=== PATIENT | male | born 1955 | race Caucasian/White ===

== ENCOUNTER 2023-07-07 08:13 | Emergency (ER) | payer OTHER ==
--- OUTSIDE RECORDS SUMMARY | 2023-07-07 08:17 | XMS REPORT | Clinical Summary ---
:[address] [facility] MD Horta [facility] Center Address [address] [place] [address] Care Team Providers Name Role Phone Parker Giron MD Unavailable [phone] Maris Alaniz MD Primary Care Provider Juan Robbins MD Unavailable Yoel Frausto MD Unavailable [phone] Oksana Méndez MD Unavailable Allergies Active Allergy Reactions Criticality Noted Date Comments Bee Venom Protein (Honey Swelling Medium 05/21/2018 Bee) Poison Janette Extract Dermatitis, Itching, Rash, Low 03/02/20 19 Swelling Wasp Venom 03/02/2019 Medications Medication Sig Dispensed Refills Start Date End Date Status aspirin 81 mg Chew 1 0 Active chewable tablet tablet (81 mg) daily. cholecalciferol, Take 1.5 0 Act rossy vitamin D3, 1,000 tablets units tablet (1,500 Units) by mouth daily. escitalopram Take 1.5 0 Active (LEXAPRO) 20 mg tablets (30 tablet mg) by mouth daily. pravastatin Take 2 0 Active (PRAVACHOL) 40 mg tablets (80 tablet mg) by mouth daily. clonazePAM 0 11/26/2018 Active (KlonoPIN) 0.5 mg tablet finasteride TAKE 1 90 tablet 3 10/04/2022 Active (PROSCAR) 5 mg TABLET BY tabletIndications: MOUTH EVERY Enlarged prostate DAY with LUTS, History of urinary tract infection co-enzyme Q-10 30 Take 200 mg 0 Active mg capsule by mouth daily. tamsulosin TAKE 1 90 capsule 3 06/19/2023 Active (FLOMAX) 0.4 mg 24 CAPSULE BY hr MOUTH EVERY capsuleIndications DAY : Enlarged prostate with LUTS, History of urinary tract infection ALPRAZolam (XANAX) Take 0.25 mg 0 05/21/20 2 Discontinued (Not 0.25 mg tablet by mouth as 3 Magdiel licable) needed. finasteride TAKE 1 90 tablet 3 10/19/2020 Discont inued (PROSCAR) 5 mg TABLET BY 3 (Reor preethi) tabletIndications: MOUTH EVERY Enlarged prostate DAY with LUTS, History of urinary tract infection tamsulosin TAKE 1 90 capsule 3 11/27/2021 Discont inued (FLOMAX) 0.4 mg 24 CAPSULE BY 3 (Reorder) hr MOUTH EVERY capsuleIndications DAY : Enlarged prostate with LUTS, History of urinary tract infection Active Problems Problem Noted Date Diagnosed Date Hyperlipidemia 08/05/1994 Overview: Pravastatin Prostate cancer Overview: Biopsy Mandatory CMS ICD-10 2020 UPDATE Polyp of colon Overview: Removed 10 yrs ago Encounters Date Type Department Care Team Description 06/19/2023 Orders Only MD Bebeto Crawford, Enlarged prostate with LUTS; [facility] Sandra Richmond, History of urinary tract inf ection [address] [place] [address] 05/22/2023 Orders Only MD Bebeto Crawford Adenocarc inoma of Alisha Flores Basilio, prostate (Primary Dx) [address] [place] [address] 05/21/2023 Follow-Up MD Bebeto Stokes Logothmindy, Adenocarc inoma of 12:00 PM CDT [facility] - Genitourinary Christophvivien, prostat e Oncology [address] [place] [address] 05/21/2023 Orders Only MD Bebeto Crawford, Enlarged prostate with LUTS (Primary Dx); Alisha Richmond, Adenocarcinoma of prostate [address] [place] [address] 05/21/2023 Travel 05/20/2023 Ancillary Procedure MD Bebeto Crawford, Ad enocarcinoma of 12:45 PM CDT Alisha Richmond, prostate [address] [address] 05/20/2023 Travel 10/04/2022 Orders Only MD Bebeto Crawford, Enlarged prostate with LUTS; Alisha Richmond, History of urinary tract inf ection [address] [place] [address] 09/26/2022 Telemedicine MD Bebeto Crawford, Adenocarc inoma of 3:00 PM [employer] Alisha Richmond, prostate [address] [place] [address] 09/26/2022 Travel after 07/07/2022 Surgical History Surgery Date Site/Laterality Comments COLONOSCOPY Regular schedule LIPOMA RESECTION Left L hand WA BX PROSTATE STRTCTC 11/28/2020 Perineum/N/A Procedure : TRANSPERINEAL SATURATION SAMPLING IMG GID NEED LE BIOPSY OF PROSTATE AND SATURATION SAMPL ING USING STEREOTACTIC TEM PLATE GUIDANCE; Surgeo n: Oksana Méndez MD; Locat ion: [facility]; Service: UROLOGY Medical History Medical History Date Comments Hyperlipidemia 1994 Pravastatin Hearing loss Deteriorating over y ears Polyp of colon Removed 10 yrs ago Benign prostatic hyperplasia 10+ years Arthritis 2000 Lower back, hands, Prostate cancer 2015 Biopsy Family History Medical History Relation Name Comments -Other cancer Father Ramiro Knowles Skin cancer -Genitourinary (Bladder, Kidney, Maternal Grandfather Sanchez Brown fman Prostate, Testicle) -Leukemia Maternal Uncle 1 Tom Fletcher Prostate cancer Maternal Uncle 2 Rosio -Thoracic or Lung Mother Sonia Knowles -Thyroid cancer Mother Sonia Knowles -Uterine cancer Mother Sonia Knowles -Other cancer Sister Ramon Skin cancer Relation Name Status Comments Father Ramiro Knowles Maternal Grandfather Sanchez Fletcher Maternal Uncle 1 Tom Fletcher Maternal Uncle 2 Rosio Alive Mother Sonia Knowles Sister Ramon Social History Tobacco Use Types Packs/Day Years Used Date Smoking Tobacco: Never Smokeless Tobacco: Never Alcohol Use Standard Drinks/Week Comments Yes 0 (1 standard drink = 0.6 oz pure alcoho l) Sex and Gender Information Value Date Recorded Sex Assigned at Male 11/24/2020 9:58 AM CDT Gender Identity Male 11/24/2020 9:58 AM C DT Sexual Orientation Straight 11/24/2020 9:58 AM C DT Job Start Date Occupation Industry Not on file Not on file Not on file Obstetrics History Last Filed Vital Signs Vital Sign Reading Time Taken Comments Blood Pressure 109/69 05/21/2023 11:10 AM CDT Pulse 60 05/21/2023 11:10 AM CDT Temperature 36.4 C (97.5 F) 05/21/2023 11:10 AM CDT Respiratory Rate 16 05/21/2023 11:10 AM CDT Oxygen Saturation 97% 05/21/2023 11:10 AM CDT Inhaled Oxygen Concentration - - Weight 91.9 kg (202 lb 9.6 oz) 05/21/2023 11:10 AM CDT Height 184 cm (6' 0.44") 05/20/2023 12:39 PM CDT Body Mass Index 27.14 05/20/2023 12:39 PM CDT Plan of Treatment Date Type Department Care Team Description 08/27/2023 Consult Genitourinary Cancer Molina Sommer 1:00 PM [employer] Center IV, [facility] [address], [address] [place] [address] or [facility] [place] [address] [place] [address] [phone] 11/20/2023 Lab Sandra Pardo, 7:00 AM CDT City - Diagnostic [facility] [address] [place] [address] [address] [phone] [place] [address] (Work) [phone] 11/20/2023 Telemedicine Sandra Pardo, 10:00 AM CDT City [facility] [address] [place] [address] [address] [place] [address] [phone] 05/26/2024 Lab Sandra Pardo, 6:00 AM CDT [facility] - Diagnostic [facility] [address] [place] [address] [address] [phone] [place] [address] (Work) [phone] 05/26/2024 Ancillary Procedure Sandra Pardo , 6:15 AM CDT [facility] [address] [place] [address] 2nd [place] [address] [place] [address] 05/26/2024 Follow-Up MD Bebeto Frausto, 10:00 AM CDT [facility] - Genitourinary MD [facility] [address] [place] [address] [place] [address] [phone] Health Maintenance Due Date Last Done Comments COVID-19 Vaccination ( season) 04/05/20232020, 08/24/2020 Procedures Procedure Name Priority Date/Time Associated Diagnosis Comme nts MRI PELVIS W WO Routine 05/20/2023 2:42 Adenocarcinoma of Resu lts for this CONTRAST PROSTATE PM CDT prostate procedure are in the results section. DIFFERENTIAL Routine 05/20/2023 11:56 Adenocarcinoma of Result s for this AM CDT prostate procedure are i n the results section. .CBC Routine 05/20/2023 11:56 Adenocarcinoma of Result s for this AM CDT prostate procedure are i n the results section. FRACTIONATED BILIRUBIN Routine 05/20/2023 11:56 Adenocarcinoma of Results for this AM CDT prostate procedure are i n the results section. TOTAL PROTEIN Routine 05/20/2023 11:56 Adenocarcinoma of Resul ts for this AM CDT prostate procedure are i n the results section. ASPARTATE Routine 05/20/2023 11:56 Adenocarcinoma of Result s for this AMINOTRANSFERASE AM CDT prostate procedure a re in the results section. ALANINE Routine 05/20/2023 11:56 Adenocarcinoma of Result s for this AMINOTRANSFERASE AM CDT prostate procedure a re in the results section. ALKALINE PHOSPHATASE Routine 05/20/2023 11:56 Adenocarcinoma o f Results for this AM CDT prostate procedure are i n the results section. ALBUMIN LEVEL Routine 05/20/2023 11:56 Adenocarcinoma of Resul ts for this AM CDT prostate procedure are i n the results section. CALCIUM LEVEL Routine 05/20/2023 11:56 Adenocarcinoma of Resul ts for this AM CDT prostate procedure are i n the results section. .GLOMERULAR FILTRATION Routine 05/20/2023 11:56 Adenocarcinoma of Results for this RATE AM CDT prostate procedure are i n the results section. SERUM CREATININE Routine 05/20/2023 11:56 Adenocarcinoma of Re sults for this AM CDT prostate procedure are i n the results section. ELECTROLYTE PANEL Routine 05/20/2023 11:56 Adenocarcinoma of R esults for this AM CDT prostate procedure are i n the results section. BLOOD UREA NITROGEN Routine 05/20/2023 11:56 Adenocarcinoma of Results for this AM CDT prostate procedure are i n the results section. GLUCOSE LEVEL Routine 05/20/2023 11:56 Adenocarcinoma of Resul ts for this AM CDT prostate procedure are i n the results section. TESTOSTERONE LEVEL Routine 05/20/2023 11:56 Adenocarcinoma of Results for this AM CDT prostate procedure are i n the results section. PROSTATE SPECIFIC Routine 05/20/2023 11:56 Adenocarcinoma of R esults for this ANTIGEN AM CDT prostate procedure are i n the results section. COMPLETE BLOOD COUNT W/ Routine 05/20/2023 11:56 Adenocarcinom a of DIFFERENTIAL AM CDT prostate COMPREHENSIVE METABOLIC Routine 05/20/2023 11:56 Adenocarcinom a of PANEL AM CDT prostate TESTOSTERONE LEVEL Routine 09/26/2022 10:03 Adenocarcinoma of Results for this AM [employer] prostate procedure are i n the results section. PROSTATE SPECIFIC Routine 09/26/2022 10:03 Adenocarcinoma of R esults for this ANTIGEN AM [employer] prostate procedure are i n the results section. after 07/07/2022 Results MRI Pelvis with and without Contrast - Prostate (05/20/2023 2:42 PM CDT) Anatomical Region Laterality Modality Pelvis Magnetic Resonance Specimen (Source) Anatomical Collection Method Collection Time Re ceived Time Location / / Volume Laterality 05/21/2023 9:11 AM CDT Impressions 05/21/2023 9:18 AM CDT Severe BPH without definite evidence of prostate carcinoma visualized. Estimated prostate volume of 83.6 with e stimated PSA density of 0.02 ng/mL/cc. ACTIONABLE ITEMS/RECOMMENDATIONS: None. Narrative 05/21/2023 9:18 AM CDT Full Result: Examination: MRI PELVIS W WO CONTRAST WA [place] on 05/20/2023 2:42 PM Clinical History: Adenocarcinoma of pros rosales. PSA: 1.9 ng/mL. Indication: prostate cancer Joel score: 6. Comparison: 03/09/2022 Prior therapy: none Technique: Prostate MRI acquired at 3 T without an endorectal coil. Three-plane localizer, axial T1W and axial DWI with ADC reconstruction of the pelvis were performed. Three plane T2W, axial T1W, and axial DWI with ADC reconstruction of th e prostate were performed. Axial dynamic contrast-enhanced images were acquired of the prostate. Image Quality: Acceptable Findings: Prostate measurement (3-plane): 5.8 x 4. 4 x 6.3 cm (transverse by AP by craniocaudal); estimated prostate volume of 83.6 cc. Hemorrhage: None Benign prostatic hypertrophy: Severe. There are no foci of restricted diffusio n suspicious for prostate carcinoma. Lymphadenopathy: not found No clear involvement of the bladder neck , distal sphincter, or rectum. Bones: No suspect osseous lesions Other: unremarkable. Procedure Note Lauren Miller MD - 05/21/2023Formatti ng of this note might be different from the original. Full Result: Examination: MRI PELVIS W WO CONTRAST WA OSTATE on 05/20/2023 2:42 PM Clinical History: Adenocarcinoma of pros rosales. PSA: 1.9 ng/mL. Indication: prostate cancer Vici score: 6. Comparison: 03/09/2022 Prior therapy: none Technique: Prostate MRI acquired at 3 T without an endorectal coil. Three-plane localizer, axial T1W and axial DWI with ADC reconstruction of the pelvis were performed. Three plane T2W, axial T1W, and axial DWI with ADC reconstruction of the prostate were performed. Axial dynamic contrast- enhanced images were acquired of the prostate. Image Quality: Acceptable Findings: Prostate measurement (3-plane): 5.8 x 4. 4 x 6.3 cm (transverse by AP by craniocaudal); estimated prostate volume of 83.6 cc. Hemorrhage: None Benign prostatic hypertrophy: Severe. There are no foci of restricted diffusio n suspicious for prostate carcinoma. Lymphadenopathy: not found No clear involvement of the bladder neck , distal sphincter, or rectum. Bones: No suspect osseous lesions Other: unremarkable. IMPRESSION: Severe BPH without definite evidence of prostate carcinoma visualized. Estimated prostate volume of 83.6 with e stimated PSA density of 0.02 ng/mL/cc. ACTIONABLE ITEMS/RECOMMENDATIONS: None. Sandra Crawford APRN IMG MRI ORDERABLES .Serum Creatinine (05/20/2023 11:56 AM CDT) athologist Signature Creatinine 1.00 0.67 - 1.17 [place] mg/dL Comment: Testing performed at [facility], [address] [place] [address] Specimen Anatomical Collection Method Collection Time Receive d Time (Source) Location / / Volume Laterality Blood 05/20/2023 11:56 05/20/2023 AM CDT 11:56 AM CDT Sandra Crawford APRN LAB BLOOD ORDERABLES Performing Organization Address City/State/[place] [address], [facility] [address] .CBC (05/20/2023 11:56 AM CDT) athologist Signature WBC 5.0 4.1 - 10.5 [place] K/uL Comment: All components of the CBC perfo rmed at [facility], [address] [place] [address] RBC 4.91 4.30 - 6.04 M/uL [place] Comment: All components of the CBC perfo rmed at [facility], [address] [place] [address] Hgb 14.8 13.3 - 17.4 gm/dL [place] Comment: As part of CBC or as an individ ual orderable testing performed at [facility], [address] [place] [address] Hct 45.3 39.5 - 51.8 % [place] Comment: As part of CBC testing performe d at [facility], [address] [place] [address] MCV 92 82 - 99 fL [place] Comment: As part of CBC testing performe d at [facility], [address] [place] [address] MCH 30.1 26.6 - 33.2 pg [place] Comment: As part of CBC testing performe d at [facility], [address] [place] [address] MCHC 32.7 31.1 - 35.2 gm/dL [place] Comment: As part of CBC testing performe d at [facility], [address] [place] [address] RDW-SD 43.6 37.5 - 49.7 fL [place] Comment: As part of CBC testing performe d at [facility], [address] [place] [address] RDW-CV 12.7 11.6 - 15.5 % [place] Comment: As part of CBC testing performe d at [facility], [address] [place] [address] Platelet count 171 160 - 397 K/uL [facility] Y Comment: As part of CBC or an individual orderable testing performed at [facility], [address] [place] [address] MPV 9.2 9.1 - 12.6 fL [place] Comment: As part of CBC testing performe d at [facility], [address] [place] [address] Specimen Anatomical Collection Method Collection Time Receive d Time (Source) Location / / Volume Laterality Blood 05/20/2023 11:56 05/20/2023 AM CDT 11:56 AM CDT Sandra Crawford APRN LAB BLOOD ORDERABLES Performing Organization Address City/State/[place] [address], [facility] [address] Glomerular Filtration Rate (05/20/2023 11:56 AM CDT) athologist Signature eGFR 81 >=60 [place] mL/min/1.73 sq. m Comment: The eGFRcr is calculated with the 2020 KD-EPI creatinine equation using creatinine, patient's age, and sex for adults 18 years of age and older. Other factors, especially muscle mass, may affect accuracy and need to be considered. According to the Kidney Disease: Improvi ng Global Outcomes (KDIGO) CKD Work Group 2012 Clinical Practice Guideline, chronic kidney disease (CKD) is defined as the abnormalities of kidney structure or function, present for more than 3 months, with implications for health. CKD should be c lassified by cause, GFR category, and albuminuria category. KDIGO guidelines provide the following GFR categories Stage Description GFR mL/min/1.73 m2 G1* Normal or high >= 90 G2* Mildly decreased 60-89 G3a Mildly to moderately decreased 45-59 G3b Moderately to severely decreased 30- 44 G4 Severely decreased 15-29 G5 Kidney failure <15 *In the absence of evidence of kidney da mage, neither G1 nor G2 fulfill criteria for CKD. Testing performed at [facility], [address] [place] [address] Specimen Anatomical Collection Method Collection Time Receive d Time (Source) Location / / Volume Laterality Blood 05/20/2023 11:56 05/20/2023 AM CDT 11:56 AM CDT Sandra Crawford APRN LAB BLOOD ORDERABLES Performing Organization Address City/State/ZIP Code Phon e Number [facility] [place] [address], [place] [address] Fractionated Bilirubin (05/20/2023 11:56 AM CDT) athologist Signature Bili Total 1.1 <=1.2 mg/dL [place] Comment: Indocyanine Green (ICG) may cause falsel y elevated bilirubin results. Total and direct bilirubin must not be measured from samples containing indocyanine green. False elevation of total bilirubin can b e seen in patients with IgG concentrations above 28 g/L. Testing performed at [facility], [address] [place] [address] Bili Direct 0.2 <=0.3 mg/dL [place] Comment: Indocyanine Green (ICG) may cause falsel y elevated bilirubin results. Total and direct bilirubin must not be measured from samples containing indocyanine green. Testing performed at [facility], [address] [place] [address], [place] [address] Bili Indirect 0.9 0.0 - 0.9 mg/dL [facility] Comment: Testing performed at [facility], [address] [place] [address] Specimen Anatomical Collection Method Collection Time Receive d Time (Source) Location / / Volume Laterality Blood 05/20/2023 11:56 05/20/2023 AM CDT 11:56 AM CDT Sandra Crawford APRN LAB BLOOD ORDERABLES Performing Organization Address City/State/[place] [address], [place] [address] Differential (05/20/2023 11:56 AM CDT) athologist Signature Neutrophil % 49.4 43.2 - 72.7 [place] % Comment: All components of the Different ial performed at [facility], [address] [place] [address] Lymphocyte % 38.0 16.8 - 46.2 % [place] Comment: As part of the Differential nancy ting performed at [facility], [address] [place] [address] Monocyte % 8.2 5.1 - 12.5 % [place] Comment: As part of the Differential nancy ting performed at [facility], [address] [place] [address] Eosinophil % 3.6 0.4 - 6.3 % [place] Comment: As part of the Differential nancy ting performed at [facility], [address] [place] [address] Basophil % 0.6 0.2 - 1.4 % [place] Comment: As part of the Differential nancy ting performed at [facility], [address] [place] [address] IGRE % 0.2 0.1 - 1.5 % [place] Comment: IGRE % count includes Metamyelocytes, My elocytes, and Promyelocytes. As part of the Differential testing perf ormed at [facility], [address] [place] [address] Neutrophil Abs 2.46 1.95 - 7.25 K/uL [facility] Comment: As part of the Differential nancy ting performed at [facility], [address] [place] [address] Lymphocyte Abs 1.89 1.01 - 3.24 K/uL [facility] Comment: As part of the Differential nancy ting performed at [facility], [address] [place] [address] Monocyte Abs 0.41 0.24 - 0.85 K/uL [facility] Comment: As part of the Differential nancy ting performed at [facility], [address] [place] [address] Eosinophil Abs 0.18 0.02 - 0.50 K/uL [facility] Comment: As part of the Differential nancy ting performed at [facility], [address] [place] [address] Basophil Abs 0.03 0.02 - 0.09 K/uL [facility] Comment: As part of the Differential nancy ting performed at [facility], [address] [place] [address] IG Abs 0.01 0.01 - 0.12 K/uL [place] Comment: As part of the Differential nancy ting performed at [facility], [address] [place] [address] Specimen Anatomical Collection Method Collection Time Receive d Time (Source) Location / / Volume Laterality Blood 05/20/2023 11:56 05/20/2023 AM CDT 11:56 AM CDT Sandra Crawford APRN LAB BLOOD ORDERABLES Performing Organization Address City/State/ZIP Code Phon e Number [place] [phone] [place] [address], [facility] [address] BUN (05/20/2023 11:56 AM CDT) athologist Signature BUN 17 6 - 23 mg/dL [place] Comment: Testing performed at [facility], [address] [place] [address] Specimen Anatomical Collection Method Collection Time Receive d Time (Source) Location / / Volume Laterality Blood 05/20/2023 11:56 05/20/2023 AM CDT 11:56 AM CDT Sandra Crawford [facility] LAB BLOOD ORDERABLES Performing Organization Address City/State/[place] [address], [facility] [address] (ABNORMAL) ALT (05/20/2023 11:56 AM CDT) athologist Signature ALT 43 (H) <=41 U/L [place] Comment: Testing performed at [facility], [address] [place] [address] Specimen Anatomical Collection Method Collection Time Receive d Time (Source) Location / / Volume Laterality Blood 05/20/2023 11:56 05/20/2023 AM CDT 11:56 AM CDT Sandra Crawford [facility] LAB BLOOD ORDERABLES Performing Organization Address City/State/[place] [address], [facility] [address] Aspartate Aminotransferase (05/20/2023 11:56 AM CDT) athologist Signature AST 34 <=40 U/L [place] Comment: Testing performed at [facility], [address] [place] [address] Specimen Anatomical Collection Method Collection Time Receive d Time (Source) Location / / Volume Laterality Blood 05/20/2023 11:56 05/20/2023 AM CDT 11:56 AM CDT Sandra Crawford [facility] LAB BLOOD ORDERABLES Performing Organization Address City/State/[place] [address], [facility] [address] (ABNORMAL) Testosterone (05/20/2023 11:56 AM CDT)Only the most recent of2 resultswithin the time period is included. athologist [facility] Testoster Tot 820 (H) 193 - 740 [place] ng/dL Comment: Reference Ranges: Male: Age 20 - 49 249 - 836 Age >=50 1 93 - 740 Female: Age 20 - 49 8 - 48 Age >=50 3 - 41 Testing performed at [facility], [address] [place] [address] Specimen Anatomical Collection Method Collection Time Receive d Time (Source) Location / / Volume Laterality Blood 05/20/2023 11:56 05/20/2023 AM CDT 11:56 AM CDT Sandra Crawford APRN LAB BLOOD ORDERABLES Performing Organization Address City/State/[place] [address], [facility] [address] Total Protein (05/20/2023 11:56 AM CDT) [facility] Total Protein 6.6 6.4 - 8.3 [place] g/dL Comment: Testing performed at [facility], [address] [place] [address] Specimen Anatomical Collection Method Collection Time Receive d Time (Source) Location / / Volume Laterality Blood 05/20/2023 11:56 05/20/2023 AM CDT 11:56 AM CDT Sandra Crawford APRN LAB BLOOD ORDERABLES Performing Organization Address City/State/[place] [address], [facility] [address] Prostate Specific Antigen (PSA) Diagnostic (05/20/2023 11:56 AM CDT)Only the most recent of2 resultswithin the time period is included. [facility] PSA 1.9 0.0 - 4.0 [place] ng/mL Comment: Results greater than 4519 ng/mL may not be reliable due to matrix effect with extended dilution as it exceeds the casino cage cashier's recommended limit. Caution should be exercised when interpreting such lia ues and done in conjunction with luis galaviz. [facility], [address] [place] [address] PSA Indication Diagnostic [place] Specimen Anatomical Collection Method Collection Time Receive d Time (Source) Location / / Volume Laterality Blood 05/20/2023 11:56 05/20/2023 AM CDT 11:56 AM CDT Sandra Crawford APRN LAB BLOOD ORDERABLES Performing Organization Address City/[facility]/ZIP Code Phon e Number [place], [place] [id number] [place] [address], [facility] [id number] Alkaline Phosphatase (05/20/2023 11:56 AM CDT) athologist Signature Alk Phos 69 40 - 129 U/L [place] Comment: Testing performed at [facility], [address] [place] [id number] Specimen Anatomical Collection Method Collection Time Receive d Time (Source) Location / / Volume Laterality Blood 05/20/2023 11:56 05/20/2023 AM CDT 11:56 AM CDT Sandra Crawford APRN LAB BLOOD ORDERABLES Performing Organization Address City/[facility]/ZIP Code Phon e Number [place], [place] [id number] [place] [address], [facility] [id number] Glucose Level (05/20/2023 11:56 AM CDT) P athologist Signature Glucose Level 91 70 - 99 [place] mg/dL Comment: Effective 02/29/16, the glucose reference intervals have been updated based on [place] [employer] guidelines (Standards of Medical Care in Diabetes 2016. Diabetes Care 2016; 39: S13-S22). Fasting blood glucose: Normal: 70-99 mg/dL Impaired fasting glucose (increased risk for diabetes or pre-diabetes): 100- 125 mg/dL Diabetes mellitus: >/=126 mg/dL Random blood glucose: Normal: 70-199 mg/dL Note: Random glucose >100 mg/dL is assoc iated with increased risk for diabetes Testing performed at [facility], [address] [place] [address] Specimen Anatomical Collection Method Collection Time Receive d Time (Source) Location / / Volume Laterality Blood 05/20/2023 11:56 05/20/2023 AM CDT 11:56 AM CDT Sandra Crawford APRN LAB BLOOD ORDERABLES Performing Organization Address City/State/ZIP Code Phon e Number [place], [place] [phone] [place] [address], [facility] [id number] Calcium Level (05/20/2023 11:56 AM CDT) athologist Signature Calcium Lvl 9.4 8.4 - 10.2 [place] mg/dL Comment: Testing performed at [facility], [address] [place] [address] Specimen Anatomical Collection Method Collection Time Receive d Time (Source) Location / / Volume Laterality Blood 05/20/2023 11:56 05/20/2023 AM CDT 11:56 AM CDT Sandra Crawford APRN LAB BLOOD ORDERABLES Performing Organization Address City/State/[place] [address], [facility] [address] Albumin Level (05/20/2023 11:56 AM CDT) athologist Signature Albumin Lvl 4.1 3.5 - 5.2 [place] gm/dL Comment: Testing performed at [facility], [address] [place] [id number] Specimen Anatomical Collection Method Collection Time Receive d Time (Source) Location / / Volume Laterality Blood 05/20/2023 11:56 05/20/2023 AM CDT 11:56 AM CDT Sandra Crawford APRN LAB BLOOD ORDERABLES Performing Organization Address City/State/[place] [address], [facility] [address] Electrolyte Panel (05/20/2023 11:56 AM CDT) athologist Signature Sodium Lvl 141 136 - 145 [place] mEq/L Comment: Testing performed at [facility], [address] [place] [address] Potassium Lvl 4.3 3.5 - 5.1 mEq/L [facility] Comment: Testing performed at [facility], [address] [place] [address] Chloride 105 98 - 107 mEq/L [place] Comment: Testing performed at [facility], [address] [place] [address] CO2 27 22 - 29 mEq/L [place] Comment: Testing performed at [facility], [address] [place] [address] Anion Gap 9 4 - 14 mEq/L [place] Comment: Testing performed at [facility], [address] [place] [address] Specimen Anatomical Collection Method Collection Time Receive d Time (Source) Location / / Volume Laterality Blood 05/20/2023 11:56 05/20/2023 AM CDT 11:56 AM CDT Sandra Crawford APRN LAB BLOOD ORDERABLES Performing Organization Address City/State/[place] [address], [facility] [id number] after 07/07/2022 Insurance Payer Benefit Plan / Subscriber ID Effective Dates Phone Addre ss Type Group AETNA MEDICARE AETNA MEDICARE [id number] 2021-Presen [address] [place] [address] Edmund Knowles Personal/Family Self 1955 [facility] [address] (Home) [place] [address] 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[employer] Relationship Specialty Start Date End Date Parker Giron PCP - External Urology 06/06/18 MD Erik Referring [id number] [place] [address] Maris Alainz MD PCP - General Urology 06/06/[address] [place] [id number] Juan Robbins PCP - External Follow Internal Medicine 06/23/18 MD Lyndsey Up D [address] [place] [id number] Lisbet, Consulting Physician Genitourinary Oncology 05/03/20 MD Yoel [address] [place] [address] Oksana Méndez MD Consulting Physician Urology 11/03/[address] [place] [address]
--- OUTSIDE RECORDS SUMMARY | 2023-07-07 08:18 | XMS REPORT | Continuity of Care Document ---
:1955 Author Organization [facility] t Address [address] [place] [address] [address] [place] [address] Care Team Providers Name Role Phone [phone] Primary Care Physician Unavailable Luis De Leon APRN Attending Clinician Rosie Chester MD Attending Clinician [phone] ROSIE CHESTER Attending Clinician Unavailable LUIS DE LEON Attending Clinician Unavailable Mohsen Whittaker MD Attending Clinician MOSHEN WHITTAKER Attending Clinician Unavailable Doctor Unassigned, [place] Attending Clinician Unavailable Keke Monroy MD Attending Clinician [phone] MANUELITO HARO Attending Clinician Unavailable GENESIS VALENZUELA Attending Clinician Unavailable KEKE LEDESMA Attending Clinician Unavailable OBIE GARCIA Attending Clinician Unavailable KEKE MONROY Attending Clinician Unavailable GENESIS VALENZUELA Admitting Clinician Unavailable Payers Payer Name Policy Type Policy Number Effective Date Expiration Date Janey womack [employer] INDEMNITY [id number] [id number] 00:00:00 MEDICARE PART A [id number] 2018 AND B 00:00:00 [employer] O [id number] [id number] 00:00:00 Problems Condition Condition Condition Status Onset Resolution Last Treating Co mments Source Name Details Category Date Date Treatment Clinician Date Hyperlipid Hyperlipid Disease Active Overview : [facility] helen cervantes 08-05 Formattin ity of 00:00: g of this [place] 00 note MD might be Anderso different n from the Cancer original. Center Pravastat in Prostate Prostate Disease Active Overview: Un gretchen cancer cancer Formattin ity of g of this [place] note MD might be Anderso different n from the Cancer original. Center BiopsyMan datory CMS ICD-10 2020 UPDATE Polyp of Polyp of Disease Active Overview: Un gretchen colon colon Formattin ity of g of this [place] note MD might be Anderso different n from the Cancer original. Center Removed 10 yrs ago Allergies, Adverse Reactions, Alerts Allergy Allergy Status Severity Reaction(s) Onset Inactive Treating Comm ents Source Name Type Date Date Clinician WASP DRUG Active 2019-0 MD VENOM 7-29 Anderso 00:00: n 00 POISON DRUG Active Low Dermatitis 2019-0 MD DAVE INGREDI 7-29 Anderso EXTRACT 00:00: n 00 WASP DRUG Active 2019-0 MD VENOM 7-29 Anderso 00:00: n 00 POISON DRUG Active Low Dermatitis 2019-0 MD DAVE INGREDI 7-29 Anderso EXTRACT 00:00: n 00 WASP DRUG Active 2019-0 MD VENOM 7-29 Anderso 00:00: n 00 POISON DRUG Active Low Dermatitis 2019-0 MD DAVE INGREDI 7-29 Anderso EXTRACT 00:00: n 00 WASP DRUG Active 2019-0 MD VENOM 7-29 Anderso 00:00: n 00 POISON DRUG Active Low Dermatitis 2019-0 MD DAVE INGREDI 7-29 Anderso EXTRACT 00:00: n 00 Poison Propensi Active Swelling 2019-0 Univer s Dave ty to 7-29 ity of Extract adverse 00:00: [place] reaction 00 MD janey jackson [facility] Wasp Propensi Active 2019-0 Univers Ven[place] ty to 7-29 ity of adverse 00:00: [place] reaction 00 MD janey jackson [facility] Center WASP DRUG Active 2019-0 MD VENOM 7-29 Anderso 00:00: n 00 POISON DRUG Active Low Dermatitis 2019-0 MD DAVE INGREDI 7-29 Anderso EXTRACT 00:00: n 00 WASP DRUG Active 2019-0 MD VENOM 7-29 Anderso 00:00: n 00 POISON DRUG Active Low Dermatitis 2019-0 MD DAVE INGREDI 7-29 Anderso EXTRACT 00:00: n 00 WASP DRUG Active 2019-0 MD VENOM 7-29 Anderso 00:00: n 00 POISON DRUG Active Low Dermatitis 2019-0 MD DAVE INGREDI 7-29 Anderso EXTRACT 00:00: n 00 WASP DRUG Active 2019-0 MD VENOM 7-29 Anderso 00:00: n 00 POISON DRUG Active Low Dermatitis 2019-0 MD DAVE INGREDI 7-29 Anderso EXTRACT 00:00: n 00 WASP DRUG Active 2019-0 MD VENOM 7-29 Anderso 00:00: n 00 POISON DRUG Active Low Dermatitis 2019-0 MD DAVE INGREDI 7-29 Anderso EXTRACT 00:00: n 00 WASP DRUG Active 2019-0 MD VENOM 7-29 Anderso 00:00: n 00 POISON DRUG Active Low Dermatitis 2019-0 MD DAVE INGREDI 7-29 Anderso EXTRACT 00:00: n 00 WASP DRUG Active 2019-0 MD VENOM 7-29 Anderso 00:00: n 00 POISON DRUG Active Low Dermatitis 2019-0 MD DAVE INGREDI 7-29 Anderso EXTRACT 00:00: n 00 WASP DRUG Active 2019-0 MD VENOM 7-29 Anderso 00:00: n 00 POISON DRUG Active Low Dermatitis 2019-0 MD DAVE INGREDI 7-29 Anderso EXTRACT 00:00: n 00 WASP DRUG Active 2019-0 MD VENOM 7-29 Anderso 00:00: n 00 POISON DRUG Active Low Dermatitis 2019-0 MD DAVE INGREDI 7-29 Anderso EXTRACT 00:00: n 00 WASP DRUG Active 2019-0 MD VENOM 7-29 Anderso 00:00: n 00 POISON DRUG Active Low Dermatitis 2019-0 MD DAVE INGREDI 7-29 Anderso EXTRACT 00:00: n 00 WASP DRUG Active 2019-0 MD VENOM 7-29 Anderso 00:00: n 00 POISON DRUG Active Low Dermatitis 2019-0 MD DAVE INGREDI 7-29 Anderso EXTRACT 00:00: n 00 WASP DRUG Active 2019-0 MD VENOM 7-29 Anderso 00:00: n 00 POISON DRUG Active Low Dermatitis 2019-0 MD DAVE INGREDI 7-29 Anderso EXTRACT 00:00: n 00 WASP DRUG Active 2019-0 MD VENOM 7-29 Anderso 00:00: n 00 POISON DRUG Active Low Dermatitis 2019-0 MD DAVE INGREDI 7-29 Anderso EXTRACT 00:00: n 00 WASP DRUG Active 2019- MD VENOM 7-29 Anderso 00:00: n 00 POISON DRUG Active Low Dermatitis 2019- MD DAVE INGREDI 7-29 Anderso EXTRACT 00:00: n 00 WASP DRUG Active 2019- MD VENOM 7-29 Anderso 00:00: n 00 POISON DRUG Active Low Dermatitis 2019-0 MD DAVE INGREDI 7-29 Anderso EXTRACT 00:00: n 00 Bee Propensi Active Swelling 2017-08 Univer s Venom ty to 0-17 ity of Protein adverse 00:00: [place] (Honey reaction 00 MD Bee) [facility] BEE DRUG Active Med Swelling 2017-08 MD VENOM INGREDI 0-17 Anderso PROTEIN 00:00: n (HONEY 00 BEE) BEE DRUG Active Med Swelling 2017-08 MD VENOM INGREDI 0-17 Anderso PROTEIN 00:00: n (HONEY 00 BEE) BEE DRUG Active Med Swelling 2017-08 MD VENOM INGREDI 0-17 Anderso PROTEIN 00:00: n (HONEY 00 BEE) BEE DRUG Active Med Swelling 2017-08 MD VENOM INGREDI 0-17 Anderso PROTEIN 00:00: n (HONEY 00 BEE) BEE DRUG Active Med Swelling 2017-08 MD VENOM INGREDI 0-17 Anderso PROTEIN 00:00: n (HONEY 00 BEE) BEE DRUG Active Med Swelling 2017-08 MD VENOM INGREDI 0-17 Anderso PROTEIN 00:00: n (HONEY 00 BEE) BEE DRUG Active Med Swelling 2017-08 MD VENOM INGREDI 0-17 Anderso PROTEIN 00:00: n (HONEY 00 BEE) BEE DRUG Active Med Swelling 2017-08 MD VENOM INGREDI 0-17 Anderso PROTEIN 00:00: n (HONEY 00 BEE) BEE DRUG Active Med Swelling 2017-08 MD VENOM INGREDI 0-17 Anderso PROTEIN 00:00: n (HONEY 00 BEE) BEE DRUG Active Med Swelling 2017-08 MD VENOM INGREDI 0-17 Anderso PROTEIN 00:00: n (HONEY 00 BEE) BEE DRUG Active Med Swelling 2017-08 MD VENOM INGREDI 0-17 Anderso PROTEIN 00:00: n (HONEY 00 BEE) BEE DRUG Active Med Swelling 2017-08 MD VENOM INGREDI 0-17 Anderso PROTEIN 00:00: n (HONEY 00 BEE) BEE DRUG Active Med Swelling 2017-08 MD VENOM INGREDI 0-17 Anderso PROTEIN 00:00: n (HONEY 00 BEE) BEE DRUG Active Med Swelling 2017-08 MD VENOM INGREDI 0-17 Anderso PROTEIN 00:00: n (HONEY 00 BEE) BEE DRUG Active Med Swelling 2017-08 MD VENOM INGREDI 0-17 Anderso PROTEIN 00:00: n (HONEY 00 BEE) BEE DRUG Active Med Swelling 2017-08 MD VENOM INGREDI 0-17 Anderso PROTEIN 00:00: n (HONEY 00 BEE) BEE DRUG Active Med Swelling 2017-08 MD VENOM INGREDI 0-17 Anderso PROTEIN 00:00: n (HONEY 00 BEE) BEE DRUG Active Med Swelling 2017-08 MD VENOM INGREDI 0-17 Anderso PROTEIN 00:00: n (HONEY 00 BEE) BEE DRUG Active Med Swelling 2017-08 MD VENOM INGREDI 0-17 Anderso PROTEIN 00:00: n (HONEY 00 BEE) BEE DRUG Active Med Swelling 2017-08 Univers STING / INGREDI 0-17 ity of VENOM 00:00: [address] Bee Propensi Active Swelling 2017-08 Univer s Sting / ty to 0-17 ity of Venom adverse 00:00: [place] reaction Medical s Branch Family History Family Member Diagnosis Comments Start Date Stop Date Source Natural father -Other cancer Univers ity of [place] [facility] Maternal grandfather -Genitourinary University of (Bladder, Kidney, [facility] Prostate, Cancer Center Testicle) Maternal uncle -Leukemia [facility] [place] [facility] [place] Maternal uncle Prostate cancer Unive rsity of [place] [facility] Natural mother -Thoracic or Lung Uni versity of [place] [facility] Natural mother -Thyroid cancer Unive [facility]ity of [place] [facility] Natural mother -Uterine cancer Unive rsity of [place] [facility] Natural sister -Other cancer Univers ity of [place] [facility] Social History Social Habit Start Date Stop Date Quantity Comments Source Sexual orientation [facility] Tobacco use and 2022-04-26 2022-04-26 Smokeless Universit y of exposure 00:00:00 00:00:00 tobacco non-user [facility] Branch Exposure to 2022-04-14 2022-04-24 Not sure University SARS-CoV-2 (event) 00:00:00 09:10:00 [place] [facility] Alcohol intake 2020-11-30 2020-11-30 Current drinker Unive rsity of 00:00:00 00:00:00 of alcohol Ivonne Horta son (finding) Cancer Center History of Social 2020-11-30 2020-11-30 Univers ity of function 00:00:00 00:00:00 [facility] Sex Ass[birth year] At [birth year] [facility] 00:[facility] 00:[facility]:00 Hospital Smoking Status Start Date Stop Date Source Never smoked tobacco [facility] Medications Ordered Filled Start Stop Current Ordering Indication Dosage Frequency Signature Comments Components Source Medication Medication Date Date Medication? Clinician (SIG) Name Name tamsulosin 2022-08 Yes History of TAKE 1 Univers (FLOMAX) 1-15 urinary CAPSULE BY it y of 0.4 mg 24 00:00: tract MOUTH [place] hr capsule 00 infection EVERY DAY MD Tisha jackson [facility] co-enzyme 2022-08 Yes 200mg Take 200 Uni vers Q-10 30 mg 0-17 mg by ity of capsule 21:23: mouth [place] 35 daily. MD Tisha jackson [facility] aspirin 81 2022-08 Yes 81mg Chew 1 Unive rs mg chewable 0-17 tablet (81 it y of tablet 11:21: mg) daily. [place] 51 [facility] cholecalcif 2022-08 Yes 1500U Take 1.5 U nivers arcenio, 0-17 tablets ity of vitamin D3, 11:21: (1,500 [place] 1[place]000 units 51 Units) by [place] tablet mouth [facility]. [facility] escitalopra 2022-08 Yes 30mg Take 1.5 Un gretchen m (LEXAPRO) 0-17 tablets ity o f 20 mg 11:21: (30 mg) by [place] tablet 51 mouth daily. [facility] pravastatin 2022-08 Yes 80mg Take 2 Univ ers (PRAVACHOL) 0-17 tablets ity o f 40 mg 11:21: (80 mg) by [place] tablet 51 mouth daily. [facility] ALPRAZolam 2022-08- No .25mg Take 0.25 Univers (XANAX) 0-17 10-17 mg by ity of 0.25 mg 11:21: 00:00 mouth as [place] tablet 12 :00 needed. MD Tisha jackson [facility] Center finasteride Yes History of TAKE 1 Univers (PROSCAR) 5 3-02 urinary TABLET BY ity of mg tablet 00:00: tract MOUTH [place] 00 infection EVERY DAY MD Tisha jackson [facility] Center escitalopra 0 Yes 30mg Take 30 mg Univers m oxalate 9-22 by mouth ity of 20 mg 11:09: daily. [place] tablet Medical Branch aspirin 81 0 Yes 81mg Take 81 mg U nivers mg chewable 9-22 by mouth ity of tablet 11:09: daily. [facility] Branch cholecalcif 0 Yes 1500U Take 1,500 Univers arcenio, 9-22 Units by ity of vitamin D3, 11:09: mouth [place] 25 mcg 09 daily. Medical (1,000 Branch unit) tablet ALPRAZolam Yes .25mg Take 0.25 U nivers 0.25 mg 9-22 mg by ity of tablet 11:09: mouth 3 09 (three) Medical times Branch daily as needed (anxiety). clonazePAM 0 Yes .5mg Take 0.5 Uni vers 0.5 mg 9-22 mg by ity of tablet 11:09: mouth once [place] 09 daily as Medical needed. Branch finasteride Yes 5mg Take 5 mg U nivers 5 mg tablet -22 by mouth ity of 11:09: daily. [facility] Branch tamsulosin Yes .4mg Take 0.4 Uni vers HCl 9-22 mg by ity of (TAMSULOSIN 11:09: mouth [place] ORAL) 09 daily. Medical Branch escitalopra 0 Yes 30mg Take 30 mg Univers m oxalate 9-22 by mouth ity of 20 mg 11:09: daily. [place] tablet Medical Branch aspirin 81 0 Yes 81mg Take 81 mg U nivers mg chewable 9-22 by mouth ity of tablet 11:09: daily. [facility] Branch cholecalcif 0 Yes 1500U Take 1,500 Univers arcenio, 9-22 Units by ity of vitamin D3, 11:09: mouth [place] 25 mcg 09 daily. Medical (1,000 Branch unit) tablet ALPRAZolam 0 Yes .25mg Take 0.25 U nivers 0.25 mg 9-22 mg by ity of tablet 11:09: mouth 3 09 (three) Medical times Branch daily as needed (anxiety). clonazePAM Yes .5mg Take 0.5 Uni vers 0.5 mg 9-22 mg by ity of tablet 11:09: mouth once 09 daily as Medical needed. Branch finasteride Yes 5mg Take 5 mg U nivers 5 mg tablet 9-22 by mouth ity of 11:09: daily. 09 Medical Branch tamsulosin Yes .4mg Take 0.4 Uni vers HCl 9-22 mg by ity of (TAMSULOSIN 11:09: mouth [place] ORAL) 09 daily. Medical Branch tamsulosin 2022- No History of TAKE 1 Univers (FLOMAX) 4-25 11-15 urinary CAPSULE BY i ty of 0.4 mg 24 00:00: 00:00 tract MOUTH [place] hr capsule 00 :00 infection EVERY DAY MD Tisha jackson [facility] Center PRAVASTATIN Yes [id number] TAKE 1 Univers 80 mg 1-07 TABLET BY ity of tablet 00:00: MOUTH [place] 00 EVERYDAY Medical AT BEDTIME Branch PRAVASTATIN 0 Yes [id number] TAKE 1 Univers 80 mg 1-07 TABLET BY ity of tablet 00:00: MOUTH [place] 00 EVERYDAY Medical AT BEDTIME Branch PRAVASTATIN 0 Yes [id number] TAKE 1 Univers 80 mg 1-07 TABLET BY ity of tablet 00:00: MOUTH [place] 00 EVERYDAY Medical AT BEDTIME Branch PRAVASTATIN 0 Yes [id number] TAKE 1 Univers 80 mg 1-07 TABLET BY ity of tablet 00:00: MOUTH [place] 00 EVERYDAY Medical AT BEDTIME Branch finasteride 2022- No History of TAKE 1 Univers (PROSCAR) 5 3-17 03-02 urinary TABLET BY ity of mg tablet 00:00: 00:00 tract MOUTH [place] 00 :00 infection EVERY DAY MD Tisha jackson [facility] escitalopra 2019-08 Yes 30mg Take 30 mg Univers m oxalate 2-17 by mouth ity of (LEXAPRO) 08:04: daily. [place] 20 mg 22 Medical tablet Branch aspirin 81 2019-08 Yes 81mg Take 81 mg U nivers mg chewable 2-17 by mouth ity of tablet 08:04: daily. [place] [address] Medical Branch cholecalcif 2019- Yes 1500U Take 1,500 Univers arcenio, 2-17 Units by ity of vitamin D3, 08:04: mouth [place] (VITAMIN 22 daily. Medical D3) 1,000 Branch unit tablet ALPRAZolam 2019-08 Yes .25mg Take 0.25 U nivers 0.25 mg 2-17 mg by ity of tablet 08:04: mouth 3 [place] 22 (three) Medical times Branch daily as needed (anxiety). clonazePAM 2019-08 Yes .5mg Take 0.5 Uni vers 0.5 mg 2-17 mg by ity of tablet 08:04: mouth once [place] 22 daily as Medical needed. Branch finasteride 2019-08 Yes 5mg Take 5 mg U nivers 5 mg tablet 2-17 by mouth ity of 08:04: daily. [place] [address] Medical Branch tamsulosin 2019-08 Yes .4mg Take 0.4 Uni vers HCl 2-17 mg by ity of (TAMSULOSIN 08:04: mouth [place] ORAL) 22 daily. Medical Branch escitalopra 2019-08 Yes 30mg Take 30 mg Univers m oxalate 2-17 by mouth ity of (LEXAPRO) 08:04: daily. [place] [address] tablet Branch aspirin 81 2019-08 Yes 81mg Take 81 mg U nivers mg chewable 2-17 by mouth ity of tablet 08:04: daily. [place] [address] Medical Branch cholecalcif 2019-08 Yes 1500U Take 1,500 Univers arcenio, 2-17 Units by ity of vitamin D3, 08:04: mouth [place] (VITAMIN 22 daily. Medical D3) 1,000 Branch unit tablet ALPRAZolam 2019-08 Yes .25mg Take 0.25 U nivers 0.25 mg 2-17 mg by ity of tablet 08:04: mouth 3 [place] 22 (three) Medical times [place] daily as needed (anxiety). clonazePAM 2019- Yes .5mg Take 0.5 Uni vers 0.5 mg 2-17 mg by ity of tablet 08:04: mouth once [place] 22 daily as Medical needed. Branch finasteride 2019-08 Yes 5mg Take 5 mg U nivers 5 mg tablet 2-17 by mouth ity of 08:04: daily. [place] [address] Medical Branch tamsulosin 2019-08 Yes .4mg Take 0.4 Uni vers HCl 2-17 mg by ity of (TAMSULOSIN 08:04: mouth [place] ORAL) 22 daily. Medical Branch clonazePAM Yes Univers (KlonoPIN) 4-24 ity of 0.5 mg 00:00: [place] tablet 00 MD Tisha jackson [facility] cholecalcif Yes 1000U QD Take 1,000 Methodi arcenio, 6-[address] vitamin D3, 10:28: mouth Hospi ta (VITAMIN 00 daily. l D3) 1,000 unit tablet escitalopra Yes 30mg QD Take 30 mg Methodi m (LEXAPRO) 6-[address] 20 MG 10:28: daily. Hospita tablet 00 l pravastatin Yes 80mg QD Take 80 mg Methodi (PRAVACHOL) 6-[address] 40 MG 10:28: daily. Hospita tablet 00 l aspirin Yes 81mg QD Take 81 mg Meth singh (ECOTRIN) [address] 81 MG 10:28: daily. Hospita enteric 00 l coated tablet Vital Signs Vital Name Observation Time Observation Value Comments Source Systolic blood 2022-04-26 16:07:00 110 mm[Hg] Univer sity of pressure [facility] Diastolic blood 2022-04-26 16:07:00 63 mm[Hg[facility] rate 2022-04-26 16:07:00 62 /min [facility] Body temperature 2022-04-26 16:07:00 36.67 Diana [facility] [place] [facility] Body height 2022-04-26 16:07:00 182.9 cm [facility] Body weight 2022-04-26 16:07:00 93.26 kg [facility] BMI 2022-04-26 16:07:00 27.88 kg/m2 [facility] Oxygen saturation in 2022-04-26 16:07:00 97 /min [facility] Arterial blood by [facility] [place] [facility] Pulse oximetry Branch WEIGHT 2020-12-06 10:14:00 81.3 kg WEIGHT 2020-11-03 12:13:22 89.4 kg WEIGHT 2020-05-03 14:35:48 90.8 kg Systolic blood 2023-05-21 16:10:37 109 mm[Hg] Univer sity of pressure [facility] Diastolic blood 2023-05-21 16:10:37 69 mm[Hg] Unive rsity of pressure [facility] Heart rate 2023-05-21 16:10:37 60 /min [facility]i ty of [place] MD [facility] Body temperature 2023-05-21 16:10:37 36.39 Diana Univ ersity of [place] MD [facility] Respiratory rate 2023-05-21 16:10:37 16 /min Univ ersity of [place] MD [facility] Body weight 2023-05-21 16:10:37 91.9 kg Universi ty [facility] [place] MD [facility] BMI 2023-05-21 16:10:37 27.14 kg/m2 Universi ty of [place] MD [facility] Oxygen saturation in 2023-05-21 16:10:37 97 /min University of Arterial blood by Ivonne perez Pulse oximetry Cancer Center Body height 2023-05-20 17:39:00 184 cm Universi ty of [place] MD [facility] Procedures Procedure Date / Time Performing Clinician Source Performed MRI PELVIS W WO CONTRAST 2023-05-20 19:42:[address] [facility] versity of [place] PROSTATE [facility] COMPREHENSIVE METABOLIC 2023-05-20 16:56:24 Luis De Leon [facility] PANEL [facility] COMPLETE BLOOD COUNT W/ 2023-05-20 16:56:24 Luis De Leon [facility] DIFFERENTIAL [facility] PROSTATE SPECIFIC ANTIGEN 2023-05-20 16:56:24 [facility] TESTOSTERONE LEVEL 2023-05-20 16:56:24 [facility] GLUCOSE LEVEL 2023-05-20 16:56:24 Luis De Leon [place] [facility] BLOOD UREA NITROGEN 2023-05-20 16:56:24 Luis [facility] ELECTROLYTE PANEL 2023-05-20 16:56:24 Luis De Leon [facility] SERUM CREATININE 2023-05-20 16:56:24 Luis De Leon [facility] .GLOMERULAR FILTRATION 2023-05-20 16:56:24 Luis De Leon [facility] CALCIUM LEVEL 2023-05-20 16:56:24 Luis De Leon [facility] ALBUMIN LEVEL 2023-05-20 16:56:24 Luis De Leon [facility] ALKALINE PHOSPHATASE 2023-05-20 16:56:24 Luis De Leon [facility] ALANINE AMINOTRANSFERASE 2023-05-20 16:56:24 Luis De Leon [facility] ASPARTATE AMINOTRANSFERASE 2023-05-20 16:56:24 [facility] TOTAL PROTEIN 2023-05-20 16:56:24 Luis De Leon [facility] FRACTIONATED BILIRUBIN 2023-05-20 16:56:24 Luis De Leon [facility] .CBC 2023-05-20 16:56:24 Luis De Leon [facility] DIFFERENTIAL 2023-05-20 16:56:24 Luis De Leon [facility] PROSTATE SPECIFIC ANTIGEN 2022-09-26 16:03:44 Luis De [facility] TESTOSTERONE LEVEL 2022-09-26 16:03:44 Luis De Leon [facility] ASSIGNMENT OF BENEFITS 2022-04-26 15:44:47 Doctor Unassigned, [facility] [place] [facility] Plan of Care Planned Activity Planned Date Details Comments Source Future Scheduled 2023-07-01 COVID-19 Vaccination Uni [facility] Test 17:26:11 () MD Casey simmons [facility] [code = COVID-19 Center Vaccination ()] Future Scheduled 2023-05-29 [facility] 20:20:54 malignant neoplasm of colon (procedure) [code = 878828958] Future Scheduled 2023-05-29 [facility] Test 20:20:54 malignant neoplasm of colon (procedure) [code = 745375087] Future Scheduled 2023-05-29 [facility] Test 20:20:54 malignant neoplasm of colon (procedure) [code = 434040438] Future Scheduled 2023-05-29 COVID[facility]19 [facility]ACCINE (#[facility] 20:20:54 [code = COVID-19 VACCINE (#1)] Future Scheduled 2023-05-29 [facility] Test 20:20:54 malignant neoplasm of colon (procedure) [code = 942820192] Future Scheduled 2023-05-29 [facility] Test 20:20:54 malignant neoplasm of colon (procedure) [code = 174365559] Future Scheduled 2023-05-29 SHINGLES VACCINES (1 [facility] 20:20:54 of 2) [code = SHINGLES VACCINES (1 of 2)] Future Scheduled 2023-05-29 65+ [facility]OCOCCAL [facility] Test 20:20:54 VACCINE (1 - PCV) [code = 65+ PNEUMOCOCCAL VACCINE (1 - PCV)] Future Scheduled 2023-05-29 INFLUENZA VACCINE [facility] Test 20:20:54 (#1) [code = INFLUENZA VACCINE (#1)] Encounters Start End Encounter Admission Attending Care Care Encounter Source Date/Time Date/Time Type Type Clinicians Facility Department ID 2023-06-19 2023-06-19 Bartolo Bernard2.840.1 [id number] Univers 00:00:00 00:00:00 Only Luis Richmond [id number] ity of 3.412.2.7 [place] .[id number] MD Fernandez [facility] 2023-05-22 2023-05-22 Bartolo Bernard2.840.1 [id number] Univers 00:00:00 00:00:00 Only Luis Richmond [id number] ity of 3.412.2.7 [place] .[id number] MD Fernandez [facility] 2023-05-21 2023-05-21 Follow-Up Lisbet, 1.2.840.1 [id number] [facility] 12:00:00 13:08:51 Rosie [id number] ity of 3.412.2.7 [place] .[id number] MD Johnson8 [facility] 2023-05-21 2023-05-21 Outpatient ARTI CHESTER [facility] [id number] 11:04:02 13:08:51 ROSIE alejo n 2023-05-21 2023-05-21 Orders De Leon, 1.2.840.1 [id number] Univers 00:00:00 00:00:00 Only Luis Richmond [id number] ity of 3.412.2.7 [place] .[id number] MD Johnson8 [facility] 2023-05-21 2023-05-21 Travel 1.2.840.1 [id number] Univers 00:00:00 00:00:00 [id number] ity of 3.412.2.7 [id number] [place] .[id number] 084.8 MD Johnson8 [facility] 2023-05-20 2023-05-20 Wendy De Leon, 1.2.840.1 [id number] [facility] 12:45:00 15:30:00 Procedure Luis Richmond [id number] it y of 3.412.2.7 [place] .[id number] MD Fernandez [facility] 2023-05-20 2023-05-20 Outpatient ARTI DE LEON MDA MDA [id number] 11:58:46 11:58:46 LUIS jackson 2023-05-20 2023-05-20 Outpatient ARTI DE LEON MDA MDA [id number] 11:46:34 11:56:31 LUIS jackson 2023-05-20 2023-05-20 Travel 1.2.840.1 [id number] [id number] Univers 00:00:00 00:00:00 37115.1.1 350.1.13.41 ity of 3.412.2.7 [place].698 [place] .3.155161 084.8 .8 [facility] 2022-10-04 2022-10-04 Lam De Leon, 1.2.840.1 [id number] Univers 00:00:00 00:00:00 Only Luis Richmond 32454.1.1 ity of 3.412.2.7 [place] .3.350412 .8 [facility] 2022-09-26 2022-09-26 Telemantione De Leon, 1.2.840.1 [id number] Univers 15:00:00 15:20:00 ne Luis Richmond 81797.1.1 ity of 3.412.2.7 [place] .3.458053 MD Johnson8 [facility] 2022-09-26 2022-09-26 Outpatient ARTI DE LEON MDA MDA [id number] 09:57:27 10:04:53 LUIS jackson 2022-09-26 2022-09-26 Outpatient ARTI DE LEON MDA MDA [id number] 08:04:14 08:04:14 LUIS jackson 2022-09-26 2022-09-26 Travel 1.2.840.1 1.2.118.501 [id number] Univers 00:00:00 00:00:00 50832.1.1 350.1.13.41 ity of 3.412.2.7 [place].3.698 [place] .3.843034 084.8 MD Fernandez [facility] 2022-04-26 2022-04-26 Office Remedios ORVALENTINA 1.2.168.893 [id number] [facility] 11:00:00 11:30:00 Visit Dyn 350.1.13.10 ity of CANCER 4.2.7.2.686 [facility] - [phone] Med ical MDA [address] 2022-04-26 2022-04-26 Outpatient R REMEDIOS [facility] [id number] Univers 11:00:00 11:00:00 MOHSEN gayle of [facility] 2022-04-26 2022-04-26 Orders Doctor JUAN CARLOS 1.2.840.114 [id number] Univers 00:00:00 00:00:00 Only Unassigned, [place] 350.1.13.10 ity of [facility] 4.2.7.2.686 Giancarlo as [phone] [address] 2022-04-03 2022-04-03 Orders Doctor JUAN CARLOS 1.2.840.114 [id number] Univers 00:00:00 00:00:00 Only Unassigned, [place] 350.1.13.10 ity of [facility] 4.2.7.2.686 Giancarlo as [id number] [address] 2022-04-03 2022-04-03 [facility] 1.2.840.114 [id number] Univers 00:00:00 00:00:00 Mohsen Sanchez [facility] 350.1.13.10 ity of [place] 4[place].2.686 [place] - [phone] [facility] [address] 2022-03-13 2022-03-13 Outpatient ARTI CHESTER MDA [employer] [id number] 11:41:23 11:57:05 ROSIE jackson 2022-03-09 2022-03-09 Outpatient ARTI DE LEON MDA [employer] [id number] 08:31:18 08:31:18 LUIS jackson 2022-03-09 2022-03-09 Outpatient ARTI DE LEON MDA [employer] [id number] 08:15:49 08:24:13 LUIS jackson 2021-09-14 2021-09-14 [facility] 1.2.840.114 [id number] Univers 00:00:00 00:00:00 Keke LOCO 350.1.13.10 ity of [place].2.[place] [id number] [place] dic[address] 2021-08-11 2021-08-11 [facility] 1.2.840.114 [id number] Univers 00:00:00 00:00:00 Keke LOCO 350.1.13.10 [facility] brenda MOODY 4.2.7.2.686 Arianne PERAZA [id number] [address] 2021-06-07 2021-06-07 Outpatient ARTI DE LEON, MDA MDA [id number] 08:12:56 08:12:56 LUIS jackson 2021-06-05 2021-06-05 Outpatient ARTI HARO, MDA MDA [id number] 09:53:10 09:59:52 MANUELITO jackson 2020-12-06 2020-12-06 Outpatient ARTI CHESTER, MDA MDA [id number] 10:07:46 10:33:02 ROSIE jackson 2020-11-28 2020-11-28 Outpatient ARTI VALENZUELA, MDA [facility] [id number] 11:14:00 17:40:00 GENESIS jackson 2020-11-25 2020-11-25 Outpatient ARTI LEDESMA, MDA MDA [id number] 12:41:09 12:50:50 KEKE jackson 2020-11-25 2020-11-25 Outpatient ARTI LEDESMA, MDA MDA [id number] 08:20:01 08:20:01 KEKE jackson 2020-11-03 2020-11-03 Outpatient ARTI VALENZUELA, MDA MDA [id number] 12:00:16 13:12:05 GENESIS jackson 2020-11-03 2020-11-03 Outpatient ARTI DE LEON MDA MDA [id number] 11:49:14 11:51:46 LUIS jackson 2020-09-14 2020-09-14 Outpatient [facility]z [facility] [id number] Univers 12:00:00 12:00:00 [facility] 2020-08-24 2020-08-24 Outpatient Feroz [facility] [id number] Univers 12:10:00 12:10:00 [facility] 2020-08-02 2020-08-02 Outpatient Feroz MONROY [facility] [id number] [facility] 13:40:00 13:40:00 KEKE myriam [facility] 2020-07-21 2020-07-21 Outpatient Feroz MONROY [facility] [id number] [facility] 08:00:00 08:00:00 KEKE myriam [facility] 2020-05-03 2020-05-03 Outpatient ARTI DALEOTHFATIMAH, MDA MDA [id number] 14:25:09 15:17:02 ROSIE jackson 2020-05-02 2020-05-02 Outpatient ARTI HARO, MDA MDA [id number] 09:35:48 09:35:48 MANUELITO jackson 2020-05-02 2020-05-02 Outpatient ARTI HARO, MDA MDA [id number] 09:25:16 09:28:30 MANUELITO jackson 2020-04-18 2020-04-18 Outpatient Feroz MORRISONLO [facility] [id number] [facility] 08:00:00 08:00:00 KEKE gayle [facility] 2020-02-01 2020-02-01 Outpatient Feroz MONROY [facility] [id number] [facility] 09:40:00 [facility]40[facility] This patient has no known results.
[2023-07-07] MEDS ORDERED: ONDANSETRON 4 MG/2 ML VIAL ONE (08:56)
[2023-07-07] MEDS ORDERED: NA CHLORIDE 0.9% 1,000 ML ONE (08:56)
[2023-07-07] MEDS ORDERED: MORPHINE 2 MG/ML SYR ONE ×2 (08:56→10:34)
[2023-07-07] MEDS ORDERED: KETOROLAC 30 MG/ML INJ ONE (08:56)
[2023-07-07 09:02] LABS: Absolute Lymphocytes (CBC) 1.3 K/uL (0.7-4.9); Hematocrit 44.6 % (39.6-49.0); Lymphocytes % 16.1 % (15.3-44.8); MCV 91.9 fL (80-100); MPV 7.5 fL (7.6-11.3); Platelets 179 thou/uL (152-406); RBC Red Blood Cell Count 4.85 M/uL (4.33-5.43)
[2023-07-07 09:34] LABS: Albumin 3.6 g/dL (3.4-5.0); Bilirubin Total 0.8 mg/dL (0.2-1.0); Potassium 4.2 mEq/L (3.5-5.1); Protein, Total 6.7 g/dL (6.4-8.2)
--- NOTE | 2023-07-07 10:30 | RAD REPORT ---
EXAM DESCRIPTION: CT - Abdomen Pelvis W Contrast - 07/07/2023 9:53 am CLINICAL HISTORY: Abdominal pain COMPARISON: none. TECHNIQUE: Computed axial tomography of the abdomen pelvis was obtained. 100 cc Isovue-300 was admin istered intravenously. Oral contrast was not requested which limits evaluation of bowel and appendix All CT scans are performed using dose optimization technique as appropriate and may include automated exposure control or mA/KV adjustment according to patient size. FINDINGS: Liver, spleen, pancreas, adrenals and left kidney are unremarkable. Delay in concentration right kidney. Moderate right hydronephrosis. 6 millimeter calculus proximal to mid right ureter. Marked prostatic enlargement. Small umbilical hernia. No evidence diverticulitis. 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 Spondylolysis L5-S1 IMPRESSION: 6 millimeter calculus proximal to mid right ureter resulting in moderate right hydroneph rosis
[2023-07-07 10:33] LABS: Specific Gravity > 1.030 (1.005-1.030); Transitional Epithelial <5 /HPF (None Seen); Urine Bacteria None Seen /HPF (<20); Urine Bilirubin NEGATIVE (Negative); Urine Blood 1+ (Negative); Urine Clarity Clear (Clear); Urine Color Yellow (Yellow); Urine Glucose NEGATIVE (Negative); Urine Mucus Slight /HPF (None Seen); Urine Protein TRACE (Negative); Urine RBC 21-50 /HPF (None Seen); Urine Urobilinogen Normal (Normal); Urine pH 6.5 (5.0-7.0)
--- NOTE | 2023-07-07 10:38 | EDPHYS ---
Physician Documentation [facility] Name: Edmund Knowles Age: 68 yrs Sex: Male : 1955 Arrival Date: 07/07/2023 Time: 08:13 Bed 6 Private MD: Riley Medina V ED Physician Alfa Tate HPI: 07/07 08:51 This 68 yrs old Male presents to ER via Ambulatory with complaints of Back len Pain. 08:51 The patient presents with pain that is acute, with no known mechanism of injury. The len symptoms are located in the low back, right mid back and right low back. Onset: The symptoms/episode began/occurred 2 day(s) ago. The pain does not radiate. Associated signs and symptoms: The patient has no apparent associated signs or symptoms. Modifying factors: The patient symptoms are alleviated by nothing, the patient symptoms are aggravated by movement. Severity of symptoms: At their worst the symptoms were mild, moderate, in the emergency department the symptoms are unchanged. The patient has not experienced similar symptoms in the past. Historical: - Allergies: 08:35 No Known Allergies; mb9 - Home Meds: 08:35 Flomax 0.4 mg Oral capsule [Active]; mb9 - PMHx: 08:35 bladder cancer; mb9 - PSHx: 08:35 None; mb9 - Immunization history:: Adult Immunizations up to date. - Social history:: Smoking status: Patient denies any tobacco usage or history of. - Family history:: not pertinent. ROS: 08:51 Constitutional: Negative for fever, chills, and weight loss, Eyes: Negative for injury, len pain, redness, and discharge, ENT: Negative for injury, pain, and discharge, Neck: Negative for injury, pain, and swelling, Cardiovascular: Negative for chest pain, palpitations, and edema, Respiratory: Negative for shortness of breath, cough, wheezing, and pleuritic chest pain, Abdomen/GI: Negative for abdominal pain, nausea, vomiting, diarrhea, and constipation, : Negative for injury, bleeding, discharge, and swelling, MS/Extremity: Negative for injury and deformity, Skin: Negative for injury, rash, and discoloration, Neuro: Negative for headache, weakness, numbness, tingling, and seizure, Psych: Negative for depression, anxiety, suicide ideation, homicidal ideation, and hallucinations, Allergy/Immunology: Negative for hives, rash, and allergies, Endocrine: Negative for neck swelling, polydipsia, polyuria, polyphagia, and marked weight changes, Hematologic/Lymphatic: Negative for swollen nodes, abnormal bleeding, and unusual bruising, 08:51 Back: Positive for pain at rest, pain with movement, flank pain, of the lumbar area and right mid back, Exam: 08:51 Constitutional: This is a well developed, well nourished patient who is awake, alert, len and in no acute distress. Head/Face: Normocephalic, atraumatic. Eyes: Pupils equal round and reactive to light, extra-ocular motions intact. Lids and lashes normal. Conjunctiva and sclera are non-icteric and not injected. Cornea within normal limits. Periorbital areas with no swelling, redness, or edema. ENT: Nares patent. No nasal discharge, no septal abnormalities noted. Tympanic membranes are normal and external auditory canals are clear. Oropharynx with no redness, swelling, or masses, exudates, or evidence of obstruction, uvula midline. Mucous membranes moist. Neck: Trachea midline, no thyromegaly or masses palpated, and no cervical lymphadenopathy. Supple, full range of motion without nuchal rigidity, or vertebral point tenderness. No Meningismus. Chest/axilla: Normal chest wall appearance and motion. Nontender with no deformity. No lesions are appreciated. Cardiovascular: Regular rate and rhythm with a normal S1 and S2. No gallops, murmurs, or rubs. Normal PMI, no JVD. No pulse deficits. Respiratory: Lungs have equal breath sounds bilaterally, clear to auscultation and percussion. No rales, rhonchi or wheezes noted. No increased work of breathing, no retractions or nasal flaring. Abdomen/GI: Soft, non-tender, with normal bowel sounds. No distension or tympany. No guarding or rebound. No evidence of tenderness throughout. Back: No spinal tenderness. No costovertebral tenderness. Full range of motion. Skin: Warm, dry with normal turgor. Normal color with no rashes, no lesions, and no evidence of cellulitis. MS/ Extremity: Pulses equal, no cyanosis. Neurovascular intact. Full, normal range of motion. Neuro: Awake and alert, GCS 15, oriented to person, place, time, and situation. Cranial nerves II-XII grossly intact. Motor strength 5/5 in all extremities. Sensory grossly intact. Cerebellar exam normal. Normal gait. Psych: Awake, alert, with orientation to person, place and time. Behavior, mood, and affect are within normal limits. 08:51 : CVA tenderness, on the right, Male external genitalia: normal, Bladder: is normal, Sexual behavior: the patient is sexually active, Vital Signs: 08:34 BP 123 / 61; Pulse 54; Resp 16; Temp 98; Pulse Ox 100% on R/A; Weight 90.72 kg; Height mb9 6 ft. 1 in. ; Pain 5/10; 09:13 BP 128 / 81; Pulse 56; Resp 18; Pulse Ox 100% on R/A; Pain 2/10; mb9 10:49 BP 129 / 76; Pulse 58; Resp 16; Pulse Ox 100% on R/A; mb9 08:34 Body Mass Index 26.39 (90.72 kg, 185.42 cm) mb9 08:34 Pain Scale: Adult mb9 09:13 Pain Scale: Adult mb9 MDM: 08:16 Patient medically screened. eln 08:57 Differential diagnosis: Neoplasm Osteoarthritis Pancreatic Carcinoma Pyelonephritis len Renal Infarction Scoliosis sprain, Ureterolithiasis vertebral fracture. Data reviewed: vital signs, nurses notes, lab test result(s), radiologic studies, CT scan. Consideration of Admission/Observation Escalation of care including admission/observation considered. I considered the following discharge prescriptions or medication management in the emergency department Medications were administered in the Emergency Department. See MAR. Test considered but Not performed: EKG: no ekg. Care significantly affected by the following chronic conditions: Cancer. 07/07 08:34 Order name: CBC with Diff; Complete Time: 09:18 [facility] 07/07 08:34 Order name: CMP; Complete Time: 09:35 [facility] 07/07 08:34 Order name: Lipase; Complete Time: 09:35 [facility] 07/07 08:34 Order name: Urinalysis w/ reflexes; Complete Time: 10:34 [facility] 07/07 08:34 Order name: CT Abd/Pelvis - IV Contrast Only; Complete Time: 10:34 [facility] 07/07 08:34 Order name: IV Saline Lock; Complete Time: 08:54 [facility] 12/03 08:34 Order name: Labs collected and sent; Complete Time: 08:54 len Administered Medications: 08:47 Drug: NS 0.9% IV 1000 ml IV at 1 bolus Per protocol; 1000 mL bolus Route: IV; Rate: 1 mb9 bolus; Site: right antecubital; 10:50 Follow up: Response: No adverse reaction; IV Status: Completed infusion mb9 08:47 Drug: Ondansetron IVP 4 mg IVP once; over 2 minutes Route: IVP; Site: right antecubital;mb9 10:23 Follow up: Response: No adverse reaction mb9 08:50 Drug: Ketorolac IVP 30 mg IVP once Route: IVP; Site: right antecubital; mb9 10:23 Follow up: Response: No adverse reaction mb9 08:53 Drug: morphine IVP or IV 2 mg IVP once over 4 mins Route: IVP; Infused Over: 4 mins; mb9 Site: right antecubital; 10:23 Follow up: Response: No adverse reaction mb9 10:22 Drug: morphine IVP or IV 2 mg IVP once over 4 mins Route: IVP; Infused Over: 4 mins; mb9 Site: right antecubital; 10:46 Follow up: Response: No adverse reaction mb9 10:43 Not Given (Physician Discretion): flomax0.4 mg PO Per protocol mb9 10:46 Drug: Rocephin IV 1 grams IV at per protocol once; Given slow IV push per pharmacy mb9 instructions Route: IV; Rate: per protocol; Site: right antecubital; 10:50 Follow up: Response: No adverse reaction; IV Status: Completed infusion mb9 Disposition Summary: 07/07/23 10:38 Discharge Ordered Notes: Location: Home len Problem: new len Symptoms: have improved len Condition: Stable len Diagnosis - Hydronephrosis with renal and ureteral calculous obstruction - 6 mm right mid uretercha Followup: len - With: Riley Medina MD - When: 2 - 3 days - Reason: Recheck today's complaints, Continuance of care, Re-evaluation by your physician Followup: len - With: Francisco Nam MD - When: 2 - 3 days - Reason: Recheck today's complaints, Re-evaluation by your physician Discharge Instructions: - Discharge Summary Sheet len - Kidney Stones len - Kidney Stones, Aheq-ma-Dggm len - Hydronephrosis len - Dietary Guidelines to Help Prevent Kidney Stones len Forms: - Medication Reconciliation Form len - Thank You Letter len - Antibiotic Education len - Prescription Opioid Use len - Patient Portal Instructions len - Leadership Thank You Letter len Prescriptions: - Flomax 0.4 mg Oral capsule - take 1 capsule ORAL route every 24 hours; 20 capsule; Refills: 0, Product len Selection Permitted - acetaminophen-codeine 300-30 mg Oral tablet - take 2 tablet ORAL route every 6 hours as needed for pain; 20 tablet; Refills: [facility] 0, Product Selection Permitted - ondansetron 4 mg Oral Tablet,disintegrating - take 1 tablet ORAL route every 6 to 8 hours for 5 days; 20 tablet; Refills: 0, [facility] Product Selection Permitted - Cipro 500 mg Oral Tablet - take 1 tablet ORAL route every 12 hours for 7 days; 14 tablet; Refills: 0, [facility] Product Selection Permitted Signatures: Dispatcher [employer] Alfa Braswell MD MD cha Breneman, Mary Beth, RN RN mb9
--- NOTE | 2023-07-07 10:38 | ER ---
Nurse's Notes [facility] Name: Edmund Knowles Age: 68 yrs Sex: Male : 1955 Arrival Date: 07/07/2023 Time: 08:13 Bed 6 Private MD: Riley Medina V Diagnosis: Hydronephrosis with renal and ureteral calculous obstruction-6 mm right mid ureter Presentation: 07/07 08:34 Chief complaint: Patient states: "I've had right lower back pain for a couple days that mb9 is constant. I don't have any burning with urination or abdominal pain.". Coronavirus screen: At this time, the client does not indicate any symptoms associated with coronavirus-19. Ebola Screen: No symptoms or risks identified at this time. Initial Sepsis Screen: Does the patient meet any 2 criteria? No. Patient's initial sepsis screen is negative. Does the patient have a suspected source of infection? No. Patient's initial sepsis screen is negative. Risk Assessment: Do you want to hurt yourself or someone else? Patient reports no desire to harm self or others. Onset of symptoms was July 07, 2023. 08:34 Method Of Arrival: Ambulatory mb9 08:34 Acuity: NICANOR 3 mb9 Triage Assessment: 08:36 General: Appears in no apparent distress. Behavior is calm, cooperative. Pain: mb9 Complains of pain in back Pain radiates to right lower back Pain currently is 5 out of 10 on a pain scale. Quality of pain is described as throbbing, Pain began 2-3 days ago. Is continuous. EENT: No signs and/or symptoms were reported regarding the EENT system. Neuro: Healy Agitation-Sedation Scale (RASS): 0 - Alert and Calm Level of Consciousness is awake, alert, obeys commands, Oriented to person, place, time, situation, Appropriate for age. Cardiovascular: Patient's skin is warm and dry. Respiratory: Airway is patent Respiratory effort is even, unlabored, Respiratory pattern is regular, symmetrical, Breath sounds are clear bilaterally. GI: Abdomen is round non-distended, Bowel sounds present X 4 quads. Abd is soft and non tender X 4 quads. GI: Reports nausea. : Denies burning with urination. Derm: Skin is pink, warm \\T\\ dry. Musculoskeletal: Range of motion: intact in all extremities. Historical: - Allergies: 08:35 No Known Allergies; mb9 - Home Meds: 08:35 Flomax 0.4 mg Oral capsule [Active]; mb9 - PMHx: 08:35 bladder cancer; mb9 - PSHx: 08:35 None; mb9 - Immunization history:: Adult Immunizations up to date. - Social history:: Smoking status: Patient denies any tobacco usage or history of. - Family history:: not pertinent. Screenin:06 [facility] ED Fall Risk Assessment (Adult) History of falling in the last 3 months, mb9 including since admission No falls in past 3 months (0 pts) Confusion or Disorientation Yes (5 pts) Intoxicated or Sedated No (0 pts) Impaired Gait No (0 pts) Mobility Assist Device Used No (0 pt) Altered Elimination No (0 pt) Score/Fall Risk Level 0 - 2 = Low Risk Oriented to surroundings, Maintained a safe environment, Educated pt \\T\\ family on fall prevention, incl call for assistance when getting out of bed. Abuse screen: Denies threats or abuse. Nutritional screening: No deficits noted. Tuberculosis screening: No symptoms or risk factors identified. Assessment: 08:53 Reassessment: see triage assessment. mb9 10:49 Reassessment: No changes from previously documented assessment. Patient and/or family mb9 updated on plan of care and expected duration. Pain level reassessed. Patient is alert, oriented x 3, equal unlabored respirations, skin warm/dry/pink. Vital Signs: 08:34 BP 123 / 61; Pulse 54; Resp 16; Temp 98; Pulse Ox 100% on R/A; Weight 90.72 kg; Height mb9 6 ft. 1 in. ; Pain 5/10; 09:13 BP 128 / 81; Pulse 56; Resp 18; Pulse Ox 100% on R/A; Pain 2/10; mb9 10:49 BP 129 / 76; Pulse 58; Resp 16; Pulse Ox 100% on R/A; mb9 08:34 Body Mass Index 26.39 (90.72 kg, 185.42 cm) mb9 08:34 Pain Scale: Adult mb9 09:13 Pain Scale: Adult mb9 ED Course: 08:16 Patient arrived in ED. mr 08:16 Riley Medina MD is Private Physician. mr 08:16 Alfa Tate MD is Attending Physician. len 08:34 Marlene Silva, SRINI is Primary Nurse. mb9 08:35 Triage completed. mb9 08:36 Arm band placed on. mb9 08:53 Inserted saline lock: 20 gauge in right antecubital area, using aseptic technique. mb9 Blood collected. 08:54 CBC with Diff Sent. mb9 08:54 CMP Sent. mb9 08:54 Lipase Sent. mb9 09:06 Placed in gown. Bed in low position. Call light in reach. Side rails up X 1. Client mb9 placed on continuous cardiac and pulse oximetry monitoring. NIBP monitoring applied. 09:14 No provider procedures requiring assistance completed. mb9 09:55 CT Abd/Pelvis - IV Contrast Only In Process Unspecified. EDMS 10:37 Riley Medina MD is Referral Physician. len 10:37 Francisco Nam MD is Referral Physician. len 10:49 IV discontinued, intact, bleeding controlled, No redness/swelling at site. Pressure mb9 dressing applied. Administered Medications: 08:47 Drug: NS 0.9% IV 1000 ml IV at 1 bolus Per protocol; 1000 mL bolus Route: IV; Rate: 1 mb9 bolus; Site: right antecubital; 10:50 Follow up: Response: No adverse reaction; IV Status: Completed infusion mb9 08:47 Drug: Ondansetron IVP 4 mg IVP once; over 2 minutes Route: IVP; Site: right antecubital;mb9 10:23 Follow up: Response: No adverse reaction mb9 08:50 Drug: Ketorolac IVP 30 mg IVP once Route: IVP; Site: right antecubital; mb9 10:23 Follow up: Response: No adverse reaction mb9 08:53 Drug: morphine IVP or IV 2 mg IVP once over 4 mins Route: IVP; Infused Over: 4 mins; mb9 Site: right antecubital; 10:23 Follow up: Response: No adverse reaction mb9 10:22 Drug: morphine IVP or IV 2 mg IVP once over 4 mins Route: IVP; Infused Over: 4 mins; mb9 Site: right antecubital; 10:46 Follow up: Response: No adverse reaction mb9 10:43 Not Given (Physician Discretion): flomax0.4 mg PO Per protocol mb9 10:46 Drug: Rocephin IV 1 grams IV at per protocol once; Given slow IV push per pharmacy mb9 instructions Route: IV; Rate: per protocol; Site: right antecubital; 10:50 Follow up: Response: No adverse reaction; IV Status: Completed infusion mb9 Medication: 09:07 VIS not applicable for this client. mb9 Outcome: 10:38 Discharge ordered by MD. harrington 10:56 Discharged to home ambulatory, with family, mb9 10:56 Condition: stable 10:56 Discharge instructions given to patient, family, Instructed on discharge instructions, follow up and referral plans. Demonstrated understanding of instructions, follow-up care, medications, Prescriptions given X 4, 10:57 Patient left the ED. mb9 Signatures: Dispatcher [employer] EDMS Alfa Tate MD MD cha Rivera, Mary, Reg Reg mr Silva, Marlene Michelle, RN RN mb9
[2023-07-07] MEDS ORDERED: CEFTRIAXONE 1000 MG/VIAL ONE (10:56)
[2023-07-07 11:23] VITALS: TEMP 98; O2SAT 100
[2023-07-07 11:28] VITALS: BP 129/76
== END 2023-07-07 10:57 | disposition home or self-care (01) ==
LOC: ER 08:13
DX: N13.2 Hydronephrosis with renal and ureteral calculous obstruction (principal); Z85.51 Personal history of malignant neoplasm of bladder
CPT/HCPCS: 96361; 85025; 81001; 36415; 83690; 80053; 74177; 96375; 96374; 99284; Q9967; J2270 ×2; J2405; J7030; J0696

== ENCOUNTER → 2023-09-18 | Emergency (ER) | payer OTHER ==
[~2023-09-18] MED LIST: KETOROLAC 30 MG/ML INJ ONE; MAGNESIUM SULFATE 1 gm IVPB 1 GM/100 ML BAG IV ONE; MORPHINE 4 MG/ML SYR ONE; NA CHLORIDE 0.9% 1,000 ML ONE; ONDANSETRON 4 MG/2 ML VIAL ONE; TAMSULOSIN 0.4 MG SR CAP ONE
--- OUTSIDE RECORDS SUMMARY | 2023-09-18 15:51 | XMS REPORT | Clinical Summary ---
Author Name Unknown Organization [facility] Address [address] [place] [address] Care Team Providers Care Clin Application Specialist Name Role Phone Parker Giron MD Unavailable [phone] Maris Alaniz MD Primary Care Provider [phone] Juan Robbins MD Unavailable [phone] Yoel Frausto MD Unavailable + [phone] Oksana Méndez MD Unavailable Ros RAMIREZ MD, William J Unavailable [phone] Allergies Active Allergy Reactions Criticality Noted Date Comments Bee Venom Protein (Honey Bee) Swelling Medium 05/21/2018 Poison Janette Extract Dermatitis,Itching,R tiffany,Swe lling Low 03/02/2019 Wasp Venom 03/02/2019 Medications Medication Sig Dispensed Refills Start Date End Date Status aspirin 81 mg chewable tablet Chew 1 tablet (81 mg) daily. 0 Active cholecalciferol, vitamin D3, 1,000 units tablet Take 1.5 tablets (1,500 Units) by mouth daily. 0 Active escitalopram (LEXAPRO) 20 mg tablet Take 1.5 tablets (30 mg) by mouth daily. 0 Active pravastatin (PRAVACHOL) 40 mg tablet Take 2 tablets (80 mg) by mouth daily. 0 Active clonazePAM (KlonoPIN) 0.5 mg tablet 0 11/26/2018 Active finasteride (PROSCAR) 5 mg tabletIndications :Enlarged prostate with LUTS,History of urinary tract infection TAKE 1 TABLET BY MOUTH EVERY DAY 90 tablet 3 10/04/2022 Active co-enzyme Q-10 30 mg capsule Take 200 mg by mouth daily. 0 Active tamsulosin (FLOMAX) 0.4 mg 24 hr capsuleIndication s:Enlarged prostate with LUTS,History of urinary tract infection TAKE 1 CAPSULE BY MOUTH EVERY DAY 90 capsule 3 06/19/2023 Active multivitamin tab tablet Take 1 tablet by mouth daily. 0 Active ALPRAZolam (XANAX) 0.25 mg tablet Take 0.25 mg by mouth as needed. 0 05/21/2023 Discontinued (Not Applicable) finasteride (PROSCAR) 5 mg tabletIndications :Enlarged prostate with LUTS,History of urinary tract infection TAKE 1 TABLET BY MOUTH EVERY DAY 90 tablet 3 10/19/2020 10/04/2022 Discontinued (Reorder) tamsulosin (FLOMAX) 0.4 mg 24 hr capsuleIndication s:Enlarged prostate with LUTS,History of urinary tract infection TAKE 1 CAPSULE BY MOUTH EVERY DAY 90 capsule 3 11/27/2021 06/19/2023 Discontinued (Reorder) Active Problems Problem Noted Date Diagnosed Date Hyperlipidemia 08/05/1994 Overview: Pravastatin Prostate cancer Overview: Biopsy Mandatory CMS ICD-10 2020 UPDATE Polyp of colon Overview: Removed 10 yrs ago Encounters Date Type Department Care Team Description 08/27/2023 1:00 PM [facility] [address] [place] [address], 7th [place] [address] Molina Sommer IV, MD Enlarged prostate with LUTS; Adenocarcinoma of prostate 08/27/2023 Travel 06/19/2023 Orders Only [facility] [address] [place] [address] Sandra Crawford APRN Enlarged prostate with LUTS; History of urinary tract infection 05/22/2023 Orders Only MD Tate Billings [address] [place] [address] Sandra Crawford APRN Adenocarcinoma of prostate (Primary Dx) 05/21/2023 12:00 PM CDT Follow-Up [facility] [address] [place] [address] Yoel Frausto MD Adenocarcinoma of prostate 05/21/2023 Orders Only [facility] [address] [place] [address] Sandra Crawford, [employer] Enlarged prostate with LUTS (Primary Dx); Adenocarcinoma of prostate 05/21/2023 Travel 05/20/2023 12:45 PM CDT Ancillary Procedure [facility] [address] [address] Sandra Crawford, [employer] Adenocarcinoma of prostate 05/20/2023 Travel 10/04/2022 Orders Only [facility] [address] [place] [address] Sandra Crawford, [employer] Enlarged prostate with LUTS; History of urinary tract infection 09/26/2022 3:00 PM [employer] Telemedicine [facility] [address] [place] [address] Sandra Crawford, [employer] Adenocarcinoma of prostate 09/26/2022 Travel after 09/18/2022 Surgical History Surgery Date Site/Laterality Comments COLONOSCOPY Regular schedule LIPOMA RESECTION Left L hand MN BX PROSTATE STRTCTC SATURATION SAMPLING IMG GID 11/28/2020 Perineum/N/A Procedure: TRANSPERINEAL NEEDLE BIOPSY OF PROSTATE AND SATURATION SAMPLING USING STEREOTACTIC TEMPLATE GUIDANCE; Surgeon: Oksana Méndez MD; Location: [facility]; Service: UROLOGY Medical History Medical History Date Comments Hyperlipidemia 1994 Pravastatin Hearing loss Deteriorating ov er years Polyp of colon Removed 10 yrs a go Benign prostatic hyperplasia 10+ years Arthritis 1999 Lower back, hand s, Prostate cancer 2015 Family History Medical History Relation Name Comments -Other cancer Father Ramiro Knowles Skin cancer -Genitourinary (Bladder, Kid marisol, Prostate, Testicle) Maternal Grandfather Sanchez Fletcher -Leukemia Maternal Uncle 1 Tom Fletcher Prostate [...] 0 (1 standard drink = 0.6 oz pur e alcohol) Sex and Gender Information Value Date Recorded Sex Assigned at Male 11/24/2020 9:58 AM CDT Gender Identity Male 11/24/2020 9:58 AM CDT Sexual Orientation Straight 11/24/2020 9: 58 AM CDT Job Start Date Occupation Industry Not on file Not on file Not on file Obstetrics History Last Filed Vital Signs Vital Sign Reading Time Taken Comments Blood Pressure 101/64 08/27/2023 12:47 PM [employer] Pulse 71 08/27/2023 12:47 PM [employer] Temperature 36.2 C (97.2 F) 08/27/2023 12:[address] Respiratory Rate 16 08/27/2023 12:47 PM [employer] Oxygen Saturation 95% 08/27/2023 12:47 PM [employer] Inhaled Oxygen Concentration - - Weight 89.5 kg (197 lb 5 oz) 08/27/2023 12:47 PM [employer] Height 184 cm (6' 0.44") 08/27/2023 12:47 PM [employer] Body Mass Index 26.44 08/27/2023 12:47 PM [employer] Plan of Treatment Upcoming Encounters Date Type Department Care Team Description 11/27/2023 8:00 AM CDT Lab MD Bebeto Stokes [facility] [address] [place] [address] Sandra Crawford, [employer] [address] [place] [address] 11/27/2023 9:00 AM CDT Telemedicine MD Bebeto Stokes [address] [address] Sandra Crawford, [employer] [address] [place] [address] 05/26/2024 6:00 AM CDT Lab MD [facility] [address] [facility] [address] [place] [address] Sandra Crawford, [employer] [address] [place] [address] 05/26/2024 6:15 AM CDT Ancillary Procedure MD Bebeto Brito [address] [place] [address] Sandra Crawford, [employer] [address] [place] [address] 05/26/2024 10:00 AM CDT Follow-Up MD Bebeto Brito - Genitourinary Oncology [facility] [place] [address] Yoel Frausto MD [address] [place] [address] Health Maintenance Due Date Last Done Comments COVID-19 Vaccination ( season) 2023 09/14/2020, 08/24/2020 Procedures Procedure Name Priority Date/Time Associated Diagnosis Comments MRI PELVIS W WO CONTRAST PROSTATE Routine 05/20/2023 2:42 PM CDT Adenocarcinoma of prostate DIFFERENTIAL Routine 05/20/2023 11:56 AM CDT Adenocarcinoma of prostate .CBC Routine 05/20/2023 11:56 AM CDT Adenocarcinoma of prostate FRACTIONATED BILIRUBIN Routine 11:56 AM CDT Adenocarcinoma of prostate TOTAL PROTEIN Routine 05/20/2023 11:56 AM CDT Adenocarcinoma of prostate ASPARTATE AMINOTRANSFERASE Routine 05/20/2023 11:56 AM CDT Adenocarcinoma of prostate ALANINE AMINOTRANSFERASE Routine 11:56 AM CDT Adenocarcinoma of prostate ALKALINE PHOSPHATASE Routine 05/20/2023 11:56 AM CDT Adenocarcinoma of prostate ALBUMIN LEVEL Routine 05/20/2023 11:56 AM CDT Adenocarcinoma of prostate CALCIUM LEVEL Routine 05/20/2023 11:56 AM CDT Adenocarcinoma of prostate .GLOMERULAR FILTRATION RATE Routine 05/20/2023 11:56 AM CDT Adenocarcinoma of prostate SERUM CREATININE Routine 05/20/2023 11:5 6 AM CDT Adenocarcinoma of prostate ELECTROLYTE PANEL Routine 05/20/2023 11: 56 AM CDT Adenocarcinoma of prostate BLOOD UREA NITROGEN Routine 05/20/2023 1 1:56 AM CDT Adenocarcinoma of prostate GLUCOSE LEVEL Routine 05/20/2023 11:56 AM CDT Adenocarcinoma of prostate TESTOSTERONE LEVEL Routine 05/20/2023 11 :56 AM CDT Adenocarcinoma of prostate PROSTATE SPECIFIC ANTIGEN Routine 05/20/2023 11:56 AM CDT Adenocarcinoma of prostate COMPLETE BLOOD COUNT W/ DIFFERENTIAL Routine 05/20/2023 11:56 AM CDT Adenocarcinoma of prostate COMPREHENSIVE METABOLIC PANEL Routine 05/20/2023 11:56 AM CDT Adenocarcinoma of prostate TESTOSTERONE LEVEL Routine 09/26/2022 10 :03 AM [employer] Adenocarcinoma of prostate PROSTATE SPECIFIC ANTIGEN Routine 09/26/2022 10:03 AM [employer] Adenocarcinoma of prostate after 09/18/2022 Results * MRI Pelvis with and without Contrast - Prostate (05/20/2023 2:42 PM CDT) Anatomical Region Laterality Modality Pelvis Magnetic Resonan ce 05/21/2023 9:11 AM CDT Impressions 05/21/2023 9:18 AM CDT Severe BPH without definite evidence of prostate carcinoma visualized. Estimated prostate volume of 83.6 with estimated PSA density of 0.02 ng/mL/cc. ACTIONABLE ITEMS/RECOMMENDATIONS: None. Narrative 05/21/2023 9:18 AM CDT Full Result: Examination: MRI PELVIS W WO CONTRAST PROSTATE on 05/20/2023 2:42 PM Clinical History: Adenocarcinoma of prostate. PSA: 1.9 ng/mL. Indication: prostate cancer [place] score: 6. Comparison: 03/09/2022 Prior therapy: none Technique: Prostate MRI acquired at 3 T without an endorectal coil. Three-plane localizer, axial T1W and axial DWI with ADC reconstruction of the pelvis were performed. Three plane T2W, axial T1W, and axial DWI with ADC reconstruction of the prostate were performed. Axial dynamic contrast-enhanced images were acquired of the prostate. Image Quality: Acceptable Findings: Prostate measurement (3-plane): 5.8 x 4.4 x 6.3 cm (transverse by AP by craniocaudal); estimated prostate volume of 83.6 cc. Hemorrhage: None Benign prostatic hypertrophy: Severe. There are no foci of restricted diffusion suspicious for prostate carcinoma. Lymphadenopathy: not found No clear involvement of the bladder neck, distal sphincter, or rectum. Bones: No suspect osseous lesions Other: unremarkable. Procedure Note Lauren Miller MD - 05/21/2023 Full Result: Examination: MRI PELVIS W WO CONTRAST PROSTATE on 05/20/2023 2:42 PM Clinical History: Adenocarcinoma of prostate. PSA: 1.9 ng/mL. Indication: prostate cancer [place] score: 6. Comparison: 03/09/2022 Prior therapy: none Technique: Prostate MRI acquired at 3 T without an endorectal coil.Three-plane localizer, axial T1W and axial DWI with ADC reconstruction ofthe pelvis were performed. Three plane T2W, axial T1W, and axial DWI withADC reconstruction of the prostate were performed. Axial dynamiccontrast-enhanced images were acquired of the prostate. Image Quality: Acceptable Findings: Prostate measurement (3-plane): 5.8 x 4.4 x 6.3 cm (transverse by AP bycraniocaudal); estimated prostate volume of 83.6 cc. Hemorrhage: None Benign prostatic hypertrophy: Severe. There are no foci of restricted diffusion suspicious for prostatecarcinoma. Lymphadenopathy: not found No clear involvement of the bladder neck, distal sphincter, or rectum. Bones: No suspect osseous lesions Other: unremarkable. IMPRESSION: Severe BPH without definite evidence of prostate carcinoma visualized. Estimated prostate volume of 83.6 with estimated PSA density of 0.02ng/mL/cc. ACTIONABLE ITEMS/RECOMMENDATIONS: None. Sandra Crawford APRN IMG MRI ORDERABLES * .Serum Creatinine (05/20/2023 11:56 AM CDT) Creatinine 1.00 0.67 - 1.17 mg/dL [facility] Comment:Testing performed at [facility], [address] [place] [address] Blood 05/20/2023 11:5 6 AM CDT 05/20/2023 11:56 AM CDT Sandra Crawford [employer] LAB BLOOD ORDERABLES Performing Organization Address [facility]/State/[facility] Co de Phone Number [address], [facility] [address] [place] [address] * .CBC (05/20/2023 11:56 AM CDT) WBC 5.0 4.1 - 10.5 K/uL [facility] Comment:All components of th e CBC performed at [facility], [address] [place] [id number] RBC 4.91 4.30 - 6.04 M/uL [facility] Comment:All components of th e CBC performed at [facility], [address] [place] [address] Hgb 14.8 13.3 - 17.4 gm/dL [facility] Comment:As part of CBC or as an individual orderable testing performed at [facility], [address] [place] [address] Hct 45.3 39.5 - 51.8 % [facility] Comment:As part of CBC testi ng performed at [facility], [address] [place] [address] MCV 92 82 - 99 fL [facility] Comment:As part of CBC testi ng performed at [facility], [address] [place] [address] MCH 30.1 26.6 - 33.2 pg [facility] Comment:As part of CBC testi ng performed at [facility], [address] [place] [address], [place] [address] MCHC 32.7 31.1 - 35.2 gm/dL [facility] Comment:As part of CBC testi ng performed at [facility], [address] [place] [address] RDW-SD 43.6 37.5 - 49.7 fL [facility] Comment:As part of CBC testi ng performed at [facility], [address] [place] [address] RDW-CV 12.7 11.6 - 15.5 % [facility] Comment:As part of CBC testi ng performed at [facility], [address] [place] [address] Platelet count 171 160 - 397 K/uL [facility] Comment:As part of CBC or an individual orderable testing performed at [facility], [address] [place] [address] MPV 9.2 9.1 - 12.6 fL [facility] Comment:As part of CBC testi ng performed at [facility], [address] [place] [address] Blood 05/20/2023 11:5 6 AM CDT 05/20/2023 11:56 AM CDT Sandra Crawford APRN LAB BLOOD ORDERABLES [address], [facility] [address] [place] [address] * Glomerular Filtration Rate (05/20/2023 11:56 AM CDT) eGFR 81 >=60 mL/min/1.7 3 sq. m [facility] Comment: The eGFRcr is calculated with the 2020 CKD-EPI creatinine equation using creatinine, patient's age, and sex for adults 18 years of age and older. Other factors, especially muscle mass, may affect accuracy and need to be considered. According to the Kidney Disease: Improving Global Outcomes (KDIGO) CKD Work Group 2012 Clinical Practice Guideline, chronic kidney disease (CKD) is defined as the abnormalities of kidney structure or function, present for more than 3 months, with implications for health. CKD should be classified by cause, GFR category, and albuminuria category. KDIGO guidelines provide the following GFR categories Stage Description GFR mL/min/1.73 m2 G1* Normal or high >= 90 G2* Mildly decreased 60-89 G3a Mildly to moderately decreased 45-59 G3b Moderately to severely decreased 30-44 G4 Severely decreased 15-29 G5 Kidney failure <15 *In the absence of evidence of kidney damage, neither G1 nor G2 fulfill criteria for CKD. Testing performed at [facility], [address] [place] [address] Blood 05/20/2023 11:5 6 AM CDT 05/20/2023 11:56 AM CDT Sandra Crawford APRN LAB BLOOD ORDERABLES Performing Organization Address City/State/[facility] Co de Phone Number [address], [facility] [address] [place] [address] * Fractionated Bilirubin (05/20/2023 11:56 AM CDT) Bili Total 1.1 <=1.2 mg/dL [facility] Comment: Indocyanine Green (ICG) may cause falsely elevated bilirubin results. Total and direct bilirubin must not be measured from samples containing indocyanine green. False elevation of total bilirubin can be seen in patients with IgG concentrations above 28 g/L. Testing performed at [facility], [address] [place] [address] Bili Direct 0.2 <=0.3 mg/dL [facility] Comment: Indocyanine Green (ICG) may cause falsely elevated bilirubin results. Total and direct bilirubin must not be measured from samples containing indocyanine green. Testing performed at [facility], [address] [place] [address] Bili Indirect 0.9 0.0 - 0.9 mg/dL [facility] Comment:Testing performed at [facility], [address] [place] [address] Blood 05/20/2023 11:5 6 AM CDT 05/20/2023 11:56 AM CDT Sandra Crawford APRN LAB BLOOD ORDERABLES [address], [facility] [address] [place] [address] * Differential (05/20/2023 11:56 AM CDT) [facility] Neutrophil % 49.4 43.2 - 72.7 % [facility] Comment:All components of th e Differential performed at [facility], [address] [place] [address] Lymphocyte % 38.0 16.8 - 46.2 % [facility] Comment:As part of the Diffe rential testing performed at [facility], [address] [place] [address] Monocyte % 8.2 5.1 - 12.5 % [facility] Comment:As part of the Diffe rential testing performed at [facility], [address] [place] [address] Eosinophil % 3.6 0.4 - 6.3 % [facility] Comment:As part of the Diffe rential testing performed at [facility], [address] [place] [address] Basophil % 0.6 0.2 - 1.4 % [facility] Comment:As part of the Diffe rential testing performed at [facility], [address] [place] [address] IGRE % 0.2 0.1 - 1.5 % [facility] Comment: IGRE % count includes Metamyelocytes, Myelocytes, and Promyelocytes. As part of the Differential testing performed at [facility], [address] [place] [address] Neutrophil Abs 2.46 1.95 - 7.25 K/uL [facility] Comment:As part of the Diffe rential testing performed at [facility], [address] [place] [address] Lymphocyte Abs 1.89 1.01 - 3.24 K/uL [facility] Comment:As part of the Diffe rential testing performed at [facility], [address] [place] [address] Monocyte Abs 0.41 0.24 - 0.85 K/uL [facility] Comment:As part of the Diffe rential testing performed at [facility], [address] [place] [address] Eosinophil Abs 0.18 0.02 - 0.50 K/uL [facility] Comment:As part of the Diffe rential testing performed at [facility], [address] [place] [address] Basophil Abs 0.03 0.02 - 0.09 K/uL [facility] Comment:As part of the Diffe rential testing performed at [facility], [address] [place] [address] IG Abs 0.01 0.01 - 0.12 K/uL [facility] Comment:As part of the Diffe rential testing performed at [facility], [address] [place] [address] Blood 05/20/2023 11:5 6 AM CDT 05/20/2023 11:56 AM CDT Sandra Crawford APRN LAB BLOOD ORDERABLES [place] [address] [place] [address] * BUN (05/20/2023 11:56 AM CDT) [facility] Signature BUN 17 6 - 23 mg/dL [facility] Comment:Testing performed at [facility], [address] [place] [address] Blood 05/20/2023 11:5 6 AM CDT 05/20/2023 11:56 AM CDT Sandra Crawford [employer] LAB BLOOD ORDERABLES [address], [address] [address] * (ABNORMAL) ALT (05/20/2023 11:56 AM CDT) [facility] ALT 43(H) <=41 U/L [facility] Comment:Testing performed at [facility], [address] [place] [address] Blood 05/20/2023 11:5 6 AM CDT 05/20/2023 11:56 AM CDT Sandra Crawford [employer] LAB BLOOD ORDERABLES [address] [address] * Aspartate Aminotransferase (05/20/2023 11:56 AM CDT) [facility] AST 34 <=40 U/L [facility] Comment:Testing performed at [facility], [address] [place] [address] Blood 05/20/2023 11:5 6 AM CDT 05/20/2023 11:56 AM CDT Sandra Crawford [employer] LAB BLOOD ORDERABLES [address], [address] [address] * (ABNORMAL) Testosterone (05/20/2023 11:56 AM CDT) Only the most recent of2 resultswithin the time period is included. Testoster Tot 820(H) 193 - 740 ng/dL [facility] Comment: Reference Ranges: Male: Age 20 - 49 249 - 836 Age >=50 193 - 740 Female: Age 20 - 49 8 - 48 Age >=50 3 - 41 Testing performed at [facility], [address] [place] [address] Blood 05/20/2023 11:5 6 AM CDT 05/20/2023 11:56 AM CDT Sandra Crawford APRN LAB BLOOD ORDERABLES [place] [address] [place] [address] * Total Protein (05/20/2023 11:56 AM CDT) [facility] Total Protein 6.6 6.4 - 8.3 g/dL [facility] Comment:Testing performed at [facility], [address] [place] [address] Blood 05/20/2023 11:5 6 AM CDT 05/20/2023 11:56 AM CDT Sandra Crawford APRN LAB BLOOD ORDERABLES [place] [address] [place] [address] * Prostate Specific Antigen (PSA) Diagnostic (05/20/2023 11:56 AM CDT) Only the most recent of2 resultswithin the time period is included. PSA 1.9 0.0 - 4.0 ng/mL [facility] Comment: Results greater than 4519 ng/mL may not be reliable due to matrix effect with extended dilution as it exceeds the drawbridge tender's recommended limit. Caution should be exercised when interpreting such values and done in conjunction with clinical context. Testing performed at [facility], [address] [place] [address] PSA Indication Diagnostic [facility] Blood 05/20/2023 11:5 6 AM CDT 05/20/2023 11:56 AM CDT Sandra Crawford APRN LAB BLOOD ORDERABLES [address], [facility] [address] [place] [address] * Alkaline Phosphatase (05/20/2023 11:56 AM CDT) Alk Phos 69 40 - 129 U/L [facility] Comment:Testing performed at [facility], [address] [place] [address] Blood 05/20/2023 11:5 6 AM CDT 05/20/2023 11:56 AM CDT Sandra Crawford APRN LAB BLOOD ORDERABLES [address] [address] * Glucose Level (05/20/2023 11:56 AM CDT) Pathologist [facility] Glucose Level 91 70 - 99 mg/dL [facility] Comment: Effective 02/29/16, the glucose reference intervals have been updated based on [place] [employer] guidelines (Standards of Medical Care in Diabetes 2016. Diabetes Care 2016; 39: S13-S22). Fasting blood glucose: Normal: 70-99 mg/dL Impaired fasting glucose (increased risk for diabetes or pre-diabetes): 100- 125 mg/dL Diabetes mellitus: >/=126 mg/dL Random blood glucose: Normal: 70-199 mg/dL Note: Random glucose >100 mg/dL is associated with increased risk for diabetes Testing performed at [facility], [address] [place] [address] Blood 05/20/2023 11:5 6 AM CDT 05/20/2023 11:56 AM CDT Sandra L Crawford [employer] LAB BLOOD ORDERABLES [address] [address] * Calcium Level (05/20/2023 11:56 AM CDT) Calcium Lvl 9.4 8.4 - 10.2 mg/dL [facility] Comment:Testing performed at [facility], [address] [place] [address] Blood 05/20/2023 11:5 6 AM CDT 05/20/2023 11:56 AM CDT Sandra Crawford APRN LAB BLOOD ORDERABLES [address] [address] * Albumin Level (05/20/2023 11:56 AM CDT) Albumin Lvl 4.1 3.5 - 5.2 gm/dL [facility] Comment:Testing performed at [facility], [address] [place] [address] Blood 05/20/2023 11:5 6 AM CDT 05/20/2023 11:56 AM CDT Sandra Crawford [employer] LAB BLOOD ORDERABLES [address] [address] * Electrolyte Panel (05/20/2023 11:56 AM CDT) Sodium Lvl 141 136 - 145 mEq/L [facility] Comment:Testing performed at [facility], [address] [place] [address] Potassium Lvl 4.3 3.5 - 5.1 mEq/L [place] Comment:Testing performed at [facility], [address] [place] [address] Chloride 105 98 - 107 mEq/L [place] Comment:Testing performed at [facility], [address] [place] [address] CO2 27 22 - 29 mEq/L [place] Comment:Testing performed at [facility], [facility] [place] [address] Anion Gap 9 4 - 14 mEq/L [place] Comment:Testing performed at [facility], [address] [place] [id number] Blood 05/20/2023 11:5 6 AM CDT 05/20/2023 11:56 AM CDT Sandra Crawford [facility] BLOOD ORDERABLES Performing Organization Address [facility]/State/[facility] Co de Phone Number [facility] [address] [place] [address], [facility] [address] [place] [address] after 09/18/2022 Care Teams Clin Application Specialist Relationship Specialty [place] [id number] [place] [address] PCP - External Referring Urology 06/06/18 Maris Alaniz MD [address] [place] [id number] PCP - General Urology 06/06/18 Juan Robbins MD [address] [place] [id number] PCP - External Follow Up D Internal Medicine 06/23/18 Yoel Frausto MD [address] [place] [id number] Consulting Physician Genitourinary Oncology 05/03/20 Oksana Méndez MD [address] [place] [address] Consulting Physician Urology 11/03/20 Molina Sommer IV, MD [address] [place] [id number] Consulting Physician Urology 08/27/23
[2023-09-18 16:15] LABS: Absolute Lymphocytes (CBC) 2.6 K/uL (0.7-4.9); Hematocrit 43.4 % (39.6-49.0); Lymphocytes % 35.2 % (15.3-44.8); MPV 7.3 fL (7.6-11.3); Platelets 203 thou/uL (152-406); RBC Red Blood Cell Count 4.77 M/uL (4.33-5.43)
[2023-09-18 16:34] LABS: Albumin 3.8 g/dL (3.4-5.0); Bilirubin Total 0.8 mg/dL (0.2-1.0); Potassium 3.8 mEq/L (3.5-5.1); Protein, Total 7.1 g/dL (6.4-8.2)
--- NOTE | 2023-09-18 17:00 | RAD REPORT ---
EXAM DESCRIPTION: CT - Stone Protocol - 09/18/2023 4:47 pm CLINICAL HISTORY: Flank pain. FLANK PAIN COMPARISON: Abdomen Pelvis W Contrast dated 07/07/2023 TECHNIQUE: Axial images were obtained without oral or IV contrast. Lack of contrast limits solid org an and vascular assessment. The [id number] spans the entirety of the system partially obscuring uppermost abdomen and lung bases. Coronal reformatted images were obtained and reviewed. All CT scans are performed using dose optimization technique as appropriate and may include automated exposure control or mA/KV adjustment according to patient size. FINDINGS: The lower lung ko are clear. Small hiatal hernia. Imaged portions of the liver and spleen show no suspicious findings on non-contrast imaging. The panc reas and adrenal glands are normal. No pathologic lymphadenopathy in the abdomen or pelvis. 7 mm stone distal right ureter resulting in moderate right hydronephrosis and hydroureter. No left-si ded stones or hydronephrosis. No bowel obstruction, free air, free fluid or abscess. Normal appendix noted.Small fat containing umb ilical hernia. No significant bony abnormality. IMPRESSION: 7 mm stone distal right ureter resulting in moderate right hydronephrosis.
[2023-09-18 18:56] LABS: Calcium Oxalate Crystals- Ur Few /HPF (None Seen); Specific Gravity > 1.030 (1.005-1.030); Urine Bacteria <20 /HPF (<20); Urine Bilirubin NEGATIVE (Negative); Urine Blood 2+ (Negative); Urine Clarity Clear (Clear); Urine Color Yellow (Yellow); Urine Glucose NEGATIVE (Negative); Urine Mucus 1+ /HPF (None Seen); Urine Protein 1+ (Negative); Urine RBC >50 /HPF (None Seen); Urine Urobilinogen 1+ (Normal); Urine pH 5.5 (5.0-7.0)
--- NOTE | 2023-09-18 19:04 | EDPHYS ---
Physician Documentation [facility] Name: Edmund Knowles Age: 68 yrs Sex: Male : 1955 Arrival Date: 09/18/2023 Time: 15:48 Bed 5 Private MD: Riley Medina V ED Physician Terence Simpson HPI: 09/18 20:07 This 68 yrs old Male presents to ER via Ambulatory with complaints of Possible Kidney kb Stone. 20:07 Patient is a 68-year-old male with a history of kidney stones who presents for right kb flank pain that started today. Denies any urinary symptoms. Reports nausea and vomiting started about 230. Denies fever or diarrhea. Historical: - Allergies: 15:57 No Known Allergies; ld1 - Home Meds: 15:57 Flomax 0.4 mg Oral capsule [Active]; ld1 - PMHx: 15:57 Bladder cancer; ld1 - Immunization history:: Adult Immunizations up to date. - Social history:: Smoking status: Patient denies any tobacco usage or history of. Patient uses alcohol, 4 shots Whiskey daily. ROS: 20:07 Constitutional: Negative for fever, chills, and weight loss, kb 20:07 Back: Positive for flank pain, on the right, 20:07 All other systems are negative, Exam: 20:07 Constitutional: This is a well developed, well nourished patient who is awake, alert, kb and in no acute distress. Head/Face: Normocephalic, atraumatic. ENT: Moist Mucous membranes Cardiovascular: Regular rate Respiratory: Respirations even and unlabored. No increased work of breathing. Talking in full sentences Abdomen/GI: Soft, non-tender. No distention Skin: Warm, dry with normal turgor. Normal color. MS/ Extremity: Pulses equal, no cyanosis. Neurovascular intact. Full, normal range of motion. Neuro: Awake and alert, GCS 15, oriented to person, place, time, and situation. Moves all extremities. Normal gait. 20:07 Back: CVA tenderness, that is mild, is noted on the right, Vital Signs: 15:56 BP 133 / 84; Pulse 61; Resp 18; Temp 97.7(TE); Pulse Ox 100% on R/A; Weight 88.45 kg; ld1 Height 6 ft. 1 in. ; Pain 7/10; 16:45 BP 128 / 79; Pulse 70; Resp 17; Temp 97.8(O); Pulse Ox 99% on R/A; rs5 18:21 BP 117 / 75; Pulse 72; Resp 18; Pulse Ox 100% on R/A; mb9 15:56 Body Mass Index 25.73 (88.45 kg, 185.42 cm) ld1 15:56 Pain Scale: Adult ld1 MDM: 15:51 Patient medically screened. kb 20:08 Differential diagnosis: UTI, kidney stone, pyelonephritis. Data reviewed: vital signs, kb nurses notes. Consideration of Admission/Observation Escalation of care including admission/observation considered. Admission considered for 7 mm kidney stone but pain is resolved after treatment, stone is in distal ureter. Patient educated to on return precautions.. Counseling: I had a detailed discussion with the patient and/or guardian regarding the historical points, exam findings, and any diagnostic results supporting the discharge/admit diagnosis, lab results, radiology results, the need for outpatient follow up, a urologist, to return to the emergency department if symptoms worsen or persist or if there are any questions or concerns that arise at home. 09/18 15:57 Order name: CBC with Diff; Complete Time: 16:20 kb 09/18 15:57 Order name: CMP; Complete Time: 16:37 kb 09/18 15:57 Order name: Lipase; Complete Time: 16:37 kb 09/18 15:57 Order name: Urinalysis w/ reflexes; Complete Time: 19:00 kb 09/18 15:57 Order name: CT Stone Protocol; Complete Time: 17:01 kb 09/18 15:57 Order name: IV Saline Lock; Complete Time: 16:04 kb 09/18 15:57 Order name: Labs collected and sent; Complete Time: 16:04 kb Administered Medications: 16:08 Drug: NS 0.9% IV 1000 ml IV at 1 bolus Per protocol; 1000 mL bolus Route: IV; Rate: 1 mb9 bolus; Site: right antecubital; 16:35 Follow up: Response: No adverse reaction rs5 16:08 Drug: morphine IVP or IV 4 mg IVP once over 4 mins Route: IVP; Infused Over: 4 mins; mb9 Site: right antecubital; 16:30 Follow up: Response: No adverse reaction rs5 16:11 Drug: Ondansetron IVP 4 mg IVP once; over 2 minutes Route: IVP; Site: right antecubital;mb9 16:30 Follow up: Response: No adverse reaction rs5 17:05 Drug: morphine IVP or IV 4 mg IVP once over 4 mins Route: IVP; Infused Over: 4 mins; rs5 Site: left antecubital; 17:30 Follow up: Response: No adverse reaction; Pain is decreased rs5 17:30 Drug: Magnesium Sulfate IVPB 1 grams IVPB once over 1 hrs Route: IVPB; Infused Over: 1 mb9 hrs; Site: right antecubital; 18:01 Follow up: Response: No adverse reaction rs5 17:30 Drug: Flomax PO 0.4 mg PO once Route: PO; mb9 18:01 Follow up: Response: No adverse reaction rs5 17:35 Drug: Ketorolac IVP 15 mg IVP once Route: IVP; Site: right antecubital; mb9 18:00 Follow up: Response: No adverse reaction rs5 Disposition Summary: 09/18/23 19:03 Discharge Ordered Notes: Location: Home kb Condition: Stable kb Diagnosis - Calculus of ureter kb Followup: kb - With: Emergency Department - When: As needed - Reason: Worsening of condition Followup: kb - With: Riley Medina MD - When: 2 - 3 days - Reason: Recheck today's complaints, Continuance of care, Re-evaluation by your physician Followup: kb - With: Francisco Nam MD - When: 2 - 3 days - Reason: Recheck today's complaints Discharge Instructions: - Discharge Summary Sheet kb - Kidney Stones, [id number] kb - Dietary Guidelines to Help Prevent Kidney Stones kb Forms: - Medication Reconciliation Form kb - Thank You Letter kb - Antibiotic Education kb - Prescription Opioid Use kb - Patient Portal Instructions kb - Leadership Thank You Letter kb Prescriptions: - acetaminophen-codeine 300-30 mg Oral tablet - take 1 tablet ORAL route every 4 to 6 hours As needed as needed for pain; 12 kb tablet; Refills: 0, Product Selection Permitted - Zofran 4 mg Oral Tablet - take 1 tablet ORAL route every 12 hours As needed; 20 tablet; Refills: 0, kb Product Selection Permitted Signatures: Dispatcher [employer] Lindy Casanova FNP-C FNP-Ckb Tessa Hernandez, RN RN ld1 Marlene Silva, RN RN mb9 Ronni Azevedo, RN RN rs5
--- NOTE | 2023-09-18 19:04 | ER ---
Nurse's Notes [facility] Name: Edmund Knowles Age: 68 yrs Sex: Male : 1955 Arrival Date: 09/18/2023 Time: 15:48 Bed 5 Private MD: Riley Medina V Diagnosis: Calculus of ureter Presentation: 09/18 15:56 Chief complaint: Patient states: Lower right flank pain X 1 day. Recent kidney stones. ld1 C/O flank pain and N/V. Coronavirus screen: At this time, the client does not indicate any symptoms associated with coronavirus-19. Ebola Screen: No symptoms or risks identified at this time. Initial Sepsis Screen: Does the patient meet any 2 criteria? No. Patient's initial sepsis screen is negative. Does the patient have a suspected source of infection? No. Patient's initial sepsis screen is negative. Risk Assessment: Do you want to hurt yourself or someone else? Patient reports no desire to harm self or others. Onset of symptoms was September 18, 2023 at 15:57. 15:56 Acuity: NICANOR 3 ld1 15:56 Method Of Arrival: Ambulatory ld1 Triage Assessment: 15:57 General: Appears in no apparent distress. uncomfortable, Behavior is calm, cooperative, ld1 appropriate for age. Pain: Complains of pain in right low back Pain does not radiate. Pain currently is 7 out of 10 on a pain scale. Quality of pain is described as sharp, shooting, Pain began 1 day ago. Is continuous. EENT: No signs and/or symptoms were reported regarding the EENT system. Neuro: Level of Consciousness is awake, alert, obeys commands, Oriented to person, place, time, situation. Cardiovascular: Capillary refill < 3 seconds Patient's skin is warm and dry. Respiratory: Airway is patent Respiratory effort is even, unlabored. GI: Abdomen is flat, non-distended. : No signs and/or symptoms were reported regarding the genitourinary system. Derm: No signs and/or symptoms reported regarding the dermatologic system. Musculoskeletal: No signs and/or symptoms reported regarding the musculoskeletal system. Historical: - Allergies: 15:57 No Known Allergies; ld1 - Home Meds: 15:57 Flomax 0.4 mg Oral capsule [Active]; ld1 - PMHx: 15:57 Bladder cancer; ld1 - Immunization history:: Adult Immunizations up to date. - Social history:: Smoking status: Patient denies any tobacco usage or history of. Patient uses alcohol, 4 shots Whiskey daily. Screenin:11 [facility] ED Fall Risk Assessment (Adult) History of falling in the last 3 months, mb9 including since admission No falls in past 3 months (0 pts) Confusion or Disorientation No (0 pts) Intoxicated or Sedated No (0 pts) Impaired Gait No (0 pts) Mobility Assist Device Used No (0 pt) Altered Elimination No (0 pt) Score/Fall Risk Level 0 - 2 = Low Risk Oriented to surroundings, Maintained a safe environment, Educated pt \T\ family on fall prevention, incl call for assistance when getting out of bed. Abuse screen: Denies threats or abuse. Nutritional screening: No deficits noted. Tuberculosis screening: No symptoms or risk factors identified. Assessment: 16:00 General: Appears in no apparent distress. comfortable, Behavior is calm, cooperative. rs5 Pain: Complains of pain in right low back Pain does not radiate. Pain currently is 7 out of 10 on a pain scale. Quality of pain is described as aching, Is continuous. Neuro: Level of Consciousness is awake, alert, obeys commands, Oriented to person, place, time, situation. Cardiovascular: Patient's skin is warm and dry. Rhythm is regular. Respiratory: Respiratory effort is even, unlabored, Respiratory pattern is regular, symmetrical. 16:00 GI: Abdomen is round non-distended, Bowel sounds present X 4 quads. Abd is soft and non rs5 tender X 4 quads. : No signs and/or symptoms were reported regarding the genitourinary system. EENT: No signs and/or symptoms were reported regarding the EENT system. Derm: Skin is intact, Skin is pink, warm \T\ dry. Musculoskeletal: Range of motion: intact in all extremities. 16:30 Reassessment: Patient and/or family updated on plan of care and expected duration. Pain rs5 level reassessed. Patient is alert, oriented x 3, equal unlabored respirations, skin warm/dry/pink. Patient states feeling better. Patient states symptoms have improved. 17:01 Pain: Complains of pain in right low back Pain currently is 7 out of 10 on a pain rs5 scale. Quality of pain is described as aching, Is continuous. 17:02 Reassessment: Provider notified pt is reexperiencing pain. rs5 18:18 Reassessment: Patient and/or family updated on plan of care and expected duration. Pain rs5 level reassessed. Patient is alert, oriented x 3, equal unlabored respirations, skin warm/dry/pink. Patient denies pain at this time. Patient states feeling better. Patient states symptoms have improved. 18:49 Reassessment: No changes from previously documented assessment. rs5 Vital Signs: 15:56 BP 133 / 84; Pulse 61; Resp 18; Temp 97.7(TE); Pulse Ox 100% on R/A; Weight 88.45 kg; ld1 Height 6 ft. 1 in. ; Pain 7/10; 16:45 BP 128 / 79; Pulse 70; Resp 17; Temp 97.8(O); Pulse Ox 99% on R/A; rs5 18:21 BP 117 / 75; Pulse 72; Resp 18; Pulse Ox 100% on R/A; mb9 15:56 Body Mass Index 25.73 (88.45 kg, 185.42 cm) ld1 15:56 Pain Scale: Adult ld1 ED Course: 15:50 Patient arrived in ED. mr 15:50 Riley Medina MD is Private Physician. mr 15:50 [facility]athaway [facility]C [facility] kb 15:50 Terence Simpson MD is Attending Physician. kb 15:57 Triage completed. ld1 15:57 Arm band placed on right wrist. ld1 16:04 Ronni Azevedo, RN is Primary Nurse. rs5 16:07 Inserted saline lock: 20 gauge in right antecubital area, using aseptic technique. ld1 Blood collected. 16:08 Placed in gown. Bed in low position. Call light in reach. Side rails up X 1. Client mb9 placed on continuous cardiac and pulse oximetry monitoring. NIBP monitoring applied. Door closed. Noise minimized. Warm blanket given. 16:11 No provider procedures requiring assistance completed. mb9 16:49 CT Stone Protocol In Process Unspecified. EDMS 19:03 Riley Medina MD is Referral Physician. kb 19:03 Referral Physician role handed off by Riley Medina MD kb 19:03 Riley Medina MD is Referral Physician. kb 19:03 Francisco Nam MD is Referral Physician. kb 19:22 IV discontinued, intact, bleeding controlled, No redness/swelling at site. Pressure rv dressing applied. Administered Medications: 16:08 Drug: NS 0.9% IV 1000 ml IV at 1 bolus Per protocol; 1000 mL bolus Route: IV; Rate: 1 mb9 bolus; Site: right antecubital; 16:35 Follow up: Response: No adverse reaction rs5 16:08 Drug: morphine IVP or IV 4 mg IVP once over 4 mins Route: IVP; Infused Over: 4 mins; mb9 Site: right antecubital; 16:30 Follow up: Response: No adverse reaction rs5 16:11 Drug: Ondansetron IVP 4 mg IVP once; over 2 minutes Route: IVP; Site: right antecubital;mb9 16:30 Follow up: Response: No adverse reaction rs5 17:05 Drug: morphine IVP or IV 4 mg IVP once over 4 mins Route: IVP; Infused Over: 4 mins; rs5 Site: left antecubital; 17:30 Follow up: Response: No adverse reaction; Pain is decreased rs5 17:30 Drug: Magnesium Sulfate IVPB 1 grams IVPB once over 1 hrs Route: IVPB; Infused Over: 1 mb9 hrs; Site: right antecubital; 18:01 Follow up: Response: No adverse reaction rs5 17:30 Drug: Flomax PO 0.4 mg PO once Route: PO; mb9 18:01 Follow up: Response: No adverse reaction rs5 17:35 Drug: Ketorolac IVP 15 mg IVP once Route: IVP; Site: right antecubital; mb9 18:00 Follow up: Response: No adverse reaction rs5 Medication: 16:11 VIS not applicable for this client. mb9 Outcome: 19:03 Discharge ordered by . kb 19:21 Discharged to home ambulatory, rv 19:21 Condition: good 19:21 Discharge instructions given to patient, Instructed on discharge instructions, follow up and referral plans. medication usage, Demonstrated understanding of instructions, follow-up care, medications, Prescriptions given X 2, 19:22 Patient left the ED. rv Signatures: Dispatcher [employer] EDLindy Campbell, SUDHIR-C SENIOR FUND ACCOUNTANT-Marlene Patel, Reg Reg mr Murray Chaudhry, RN RN rv Mary, Tessa, RN RN ld1 Ricardo, Marlene Michelle, RN RN mb9 Ronni Azevedo, RN RN rs5
[2023-09-18 19:27] VITALS: O2SAT 100
[2023-09-18 19:45] VITALS: BP 117/75; TEMP 97.8
== END ==
LOC: ER 15:48
DX: N20.1 Calculus of ureter (principal); Z87.442 Personal history of urinary calculi; Z85.51 Personal history of malignant neoplasm of bladder
CPT/HCPCS: 36415; 74176; 76377; 80053; 81001; 83690; 85025; J2405; J3475; J7030